=== PATIENT | male | born 1970 | race Caucasian/White ===

== ENCOUNTER → 2019-08-07 08:39 | Outpatient (CLI) | payer OTHER, SELFPAY ==
[2019-08-07 10:48] LABS: Cholesterol 146 mg/dL (200); High Density Lipoprotein 55 mg/dL; T4 Free Direct 0.83 ng/dL (0.76-1.46); Thyroid Stim Hormone (TSH) 2.45 uIU/mL (0.358-3.74); Triglycerides 115 mg/dL; Very Low Density Lipoprotein 23 mg/dL (5-40)
== END ==
PROVIDERS: PCP Family Medicine; Referring Provider Family Medicine; Visit Provider Family Medicine
DX: E78.1 Pure hyperglyceridemia (principal); E78.5 Hyperlipidemia, unspecified
CPT/HCPCS: 36415; 80061; 84439; 84443

== ENCOUNTER 2020-03-03 01:35 | Emergency (ER) | payer OTHER, SELFPAY ==
[2020-03-03 01:37] VITALS: BP 183/101; PULSE 97; RESP 18; TEMP 36.5; O2SAT 96; BMI 27.0
[2020-03-03 01:41] VITALS: BP 183/101; PULSE 97; RESP 18; TEMP 36.5; O2SAT 96
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
== END 2020-03-03 03:18 | disposition home or self-care (01) ==
PROVIDERS: Emergency Provider Emergency Medicine
DX: S60.511A Abrasion of right hand, initial encounter (principal); S60.512A Abrasion of left hand, initial encounter; S80.212A Abrasion, left knee, initial encounter; S80.211A Abrasion, right knee, initial encounter; V09.9XXA Pedestrian injured in unspecified transport accident, initial encounter; Y93.9 Activity, unspecified; Y92.9 Unspecified place or not applicable; K21.9 Gastro-esophageal reflux disease without esophagitis
CPT/HCPCS: 73130; 73564; 99282

== ENCOUNTER 2020-06-18 13:23 | Emergency (ER) | payer OTHER, SELFPAY ==
[2020-06-18 13:24] VITALS: BP 133/77; PULSE 108; RESP 18; TEMP 36.4; O2SAT 97; BMI 25.7
--- NOTE | 2020-06-18 13:44 | MRI_ITS ---
STUDY: MRI LUMBAR SPINE WITHOUT CONTRAST REASON FOR EXAM: Male, 49 years old. Severe back pain with L4 radiculopathy -- TECHNIQUE: Standardized fat and water weighted pulse sequences were obtained in the sagittal and axial planes. COMPARISON: X-ray 06/17/2020 FINDINGS: T12-L1: Normal endplates. Normal disc height, hydration and morphology. Normal bilateral facet joints. Normal central canal and bilateral lateral recesses. Normal bilateral intervertebral neural foramina. There is straightening of the normal lumbar lordosis. There is no substantial scoliosis. Normal conus medullaris that terminates at the T12/L1. L1-2: Normal endplates. Normal disc height, hydration and morphology. Normal bilateral facet joints. Normal central canal and bilateral lateral recesses. Normal bilateral intervertebral neural foramina. L2-3: Normal endplates. Normal disc height, hydration and morphology. Normal bilateral facet joints. Normal central canal and bilateral lateral recesses. Normal bilateral intervertebral neural foramina. L3-4: Mild bilateral facet hypertrophy and ligament flavum hypertrophy. Mild bilobed disc protrusion produces mild spinal stenosis and mild bilateral neural foraminal stenosis. L4-5: Mild bilateral facet hypertrophy and ligament flavum hypertrophy. Mild broad disc protrusion with an inferiorly extending right preforaminal extrusion produces mild spinal stenosis, severe right lateral recess stenosis with effacement of the right S1 nerve root, mild left lateral recess stenosis, and mild bilateral neural foraminal stenosis. L5-S1: Mild broad disc protrusion produces mild spinal stenosis and mild bilateral neural foraminal stenosis. Normal visualized sacral ala. Normal visualized paraspinous soft tissue structures. MRI/Spine Lumbar (Routine) IMPRESSION: Multilevel degenerative changes, as described above. Electronically Signed: Manny Navarrete MD at 17:27 EDT Tel , Service support ,
--- NOTE | 2020-06-18 13:46 | ED.VIS.BACK ---
History of Present Illness Chief Complaint: Back Detail of Chief Complaint: Exacerbation of chronic back pain. Informant: Patient, Significant Other Onset: Weeks Context: Sudden Onset Chronic pain exacerbated by: Nothing per patient and spouse Injury: - - Denies Timing: Continuous, Waxes and wanes Quality: Dull, Aching Location: Lumbar, Buttock, Right Leg Current Severity: Severe Maximum Severity: Severe Worsened by: improves with: Movement, Ambulation, Bending, Lifting Relieved by: Nothing Associated Symptoms: Numbness, Tingling, Radiation to Right Leg - L4 dermatome Narrative: Patient is a 49-year-old male who presents with atraumatic low back pain. He states he twinge it more than once. He is unable to get up to walk. He denies bowel bladder dysfunction. No saddle paresthesia or anesthesia. He denies foot drop. His knee has buckled because of pain but not weakness. There is no history of fever or chills. There is no history of trauma. He does have history of degenerative disc disease. He had an x-ray as an outpatient yesterday. He is presently on prednisone and muscle relaxant with no improvement. Prior similar symptoms: Yes, With Prior Back Pain Recent Illness/Hospitalization: No - Past Medical History (1) Degenerative disc disease, lumbar Status: Acute (2) GERD (gastroesophageal reflux disease) Status: Chronic Past Medical History - Allergies and Home Meds Allergies/Adverse Reactions: Allergies No Known Allergies Allergy (Verified 06/18/20 13:29) Primary Care Physician: Berhane Hull MD [Primary Care Provider] - Prior records reviewed: Yes Surgical History: noncontributory Lives: Spouse/ Significant Other Smoking Status: Never smoker Alcohol: Rare Drugs: None Review of Systems General: Denies: Chills, Fever, Malaise, Subjective Eyes: Denies: Visual changes - bilaterally, Blurred Vision - bilaterally ENT: Denies: Rhinorrhea, Sore throat Cardiovascular: Denies: Chest pain, Palpitations Respiratory: Denies: Dyspnea, Cough, Dyspnea on exertion Gastrointestinal: Denies: Abdominal pain, Nausea, Vomiting, Diarrhea Genitourinary: Denies: Dysuria, Hematuria, Frequency Musculoskeletal: Reports: Back pain, Extremity Pain. Denies: Myalgias, Arthralgias, Neck pain, Swelling Skin: Denies: Rash Neurological: Denies: Headache, Weakness, Parasthesia, Numbness Psych: Denies: Depression Physical Exam Vital Signs/Narrative: Vital Signs Temp Pulse Resp BP Pulse Ox 06/18/20 13:24 97.5 F L 108 H 18 133/77 H 97 Inital Vital Signs reviewed: Yes General: Well nourished, Well developed, - Head: Normocephalic, Atraumatic Eyes: Perrl, EOMI Neck: Supple, Nontender Cardiovascular: Regular rate, Regular rhythm Respiratory: No distress Abdomen: Soft, Nontender, Nondistended, Normal bowel sounds, No masses Rectal: Deferred, - - Normal perianal sensation. Back: Normal Inspection, Spinal tenderness, Paraspinal Tenderness, Negative SLR - Right, Negative SLR - Left, - - Positive femoral stretch test on the right. Pain in the distribution of L4 dermatome.. Negative for: Nontender, Surgical Scar, Well-Healed, CVA tenderness Extremeties: Nontender, No edema Skin: Normal color, No rash, No Trauma. Negative for: Cyanosis, Diaphoresis, Pallor, Rash Neuro: Alert, Oriented, Normal Strength, Normal Sensation, Normal DTR - Hello reflexes 2+ and symmetric. Ankle reflexes 2+ and symmetric., - - EHL is intact bilaterally.. Negative for: Normal Gait Psychological: - - Perturbed Diagnostic/Tx/Re-eval - Medical Decision Making With a positive femoral stretch test and pain distribution of L4 dermatome obtain MRI to evaluate for herniated disc. Initially patient declined pain medicine. He did not want to feel loopy. He agreed to IV Toradol. Patient was turned over to the afternoon physician, Dr. Rodríguez. Disposition pending results of MRI. Patient is presently on prednisone. ED Disposition - Plan for ED Patient: Referrals: Berhane Hull MD [Primary Care Provider] -
[2020-06-18] MEDS: Ketorolac 15 MG/ML Vial IV (14:01)
--- NOTE | 2020-06-18 14:40 | ED.RN ---
pt advised that it would be several hours until able to get mri done. Pt stated that was ok.
[2020-06-18] MEDS: oxyCODONE 5 MG Tablet PO (15:35)
[2020-06-18 18:08] VITALS: BP 139/88; PULSE 79; RESP 16; O2SAT 97
== END 2020-06-18 18:13 | disposition home or self-care (01) ==
PROVIDERS: Emergency Provider Emergency Medicine
DX: M51.16 Intervertebral disc disorders with radiculopathy, lumbar region (principal); M51.27 Other intervertebral disc displacement, lumbosacral region
CPT/HCPCS: 72148; 96374; 99284; A4216

== ENCOUNTER 2020-09-12 09:00 | Outpatient (RCR) | payer OTHER, SELFPAY ==
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
--- NOTE | 2020-08-29 13:26 | HP.PTREVAL ---
Sonia Kim, DEMETRIO-C, It has been my pleasure to treat MART HDZ over the last 9 visits for Lumbar Surgery 07/01/2020. Please see the progress note below for an update on the physical therapy plan of care! Subjective: Patient reports that he feels that he is getting stronger. Feels like his strength and endurance are still a little limited. Ran last session which was hard- not pain just hard. No pain radiating down the leg and does still have some Numbness. Currently doing light duty and will return him as feels. Concerned about running after someone or being in an altercation. Objective/Function: Posture: good throughout. Gait: no deviation noted HR/TR: able with UE A. SLS: Right: 15 sec Left: 30 sec Sensation: WFL to gross touch in LE. Reflex: Patellar bilateral WFL. ROM: Lumbar: WFL in all planes. Hip/Knee/Ankle: WFL. Strength: Core: fair, Hip: 4+/5 throughout, Knee: 5/5, Ankle: Left:5/5 Right: 4/5. Flex: HS: severe, Gastroc: severe. Special Test: Slump: positive, SLR: positive, Dural Signs: positive. Observation: Plan Plan: 08/29/2020: Continue 2x a week for 3 weeks for work simulation and progression with running. Re-assess with Alicia Sotelo DPT immediately following today's session. Goals Goal 1:: Patient will be I with HEP and progression Goal Time Frame: 4-6 Weeks Goal Progress: Progressing Goal 2:: Patient will maintain proper posture t/o tx session Goal Time Frame: 4-6 Weeks Goal Progress: Progressing Goal 3:: Patient will report no pain for 1 week Goal Time Frame: 4-6 Weeks Goal Progress: Progressing Goal 4:: Patient will SLS for 30 sec without LOB on the right Goal Progress: Progressing Anticipated Interventions Patient/Client Instruction: Educate patient on: Benefits of Fitness Program Therapeutic Exercise to Include: Strength training, Endurance training, Balance training, Coordination, Agility training, Body mechanics, Postural training, Flexibilty training, Gait and locomotor training, Neuromotor development, Passive ROM, Active ROM, Dynamic Lumbar Stabilization, Scapular Strength/Stabilization For the Purpose of:: To improve muscle performance and motor function TENS: Yes Cryotherapy (ice pack, ice massage): Yes Thermo therapy (hot pack): Yes Ultrasound (thermal/non thermal): No Please do not hesitate to contact me at [phone] by phone or if you have questions or concerns regarding this new plan of care! Sincerely, SHAI SchroederT
--- NOTE | 2020-09-12 10:09 | HP.PTDCSUM ---
It has been my pleasure to treat MART HDZ referred by RAINE Rhodes, with the diagnosis of Lumbar Surgery 07/01/2020 for a total of 12 visit(s). Discharge Date: Please see the following information for a summary of their discharge status. Subjective: Fatigue from yesterday but no pain- feels that he is 90-95%- endurance is still a little off but improving. Back Pain Intensity (Out of 10): 0 % Improvement: 95 Objective/Function: Patient was able to complete without incidence. He was fatigued throughout with addition of core exercise and weighted vest. Encouraged him to continue to progress as tolerated indep at the gym and to call with questions. Goal 1:: Patient will be I with HEP and progression Goal Progress: Progressing Goal 2:: Patient will maintain proper posture t/o tx session Goal Progress: Progressing Goal 3:: Patient will report no pain for 1 week Goal Progress: Progressing Goal 4:: Patient will SLS for 30 sec without LOB on the right Goal Progress: Progressing Plan: 09/12/2020: Discharge and return to work as recommended by . 08/29/2020: Continue 2x a week for 3 weeks for work simulation and progression with running. If there are questions or concerns regarding this patient's physical therapy, please feel free to call me at [phone]. Thank you for the referral of this patient. Sincerely, Alicia Sotelo DPT
== END 2020-09-12 13:20 | disposition home or self-care (01) ==
LOC: PT 09:00
PROVIDERS: PCP Family Medicine; Referring Provider Nurse Practitioner Acute Care; Visit Provider Nurse Practitioner Acute Care
DX: M51.16 Intervertebral disc disorders with radiculopathy, lumbar region (principal)
CPT/HCPCS: 97110; 97162; 97164

== ENCOUNTER 2020-11-30 10:51 | Emergency (ER) | payer OTHER, SELFPAY ==
[2020-11-30 10:52] VITALS: BP 159/100; PULSE 62; RESP 16; TEMP 36; O2SAT 97; BMI 25.7
--- NOTE | 2020-11-30 10:53 | NURSING ---
NO OLD EKGS
[2020-11-30 11:04] VITALS: BP 163/118; PULSE 67; RESP 14; O2SAT 96
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
--- NOTE | 2020-11-30 11:09 | RAD_ITS ---
STUDY: X-RAY CHEST REASON FOR EXAM: Male, 50 years old. Chest pain TECHNIQUE: Single AP portable view of the chest. COMPARISON: 11/01/2016. FINDINGS: Patchy density right midlung zone could represent early infiltrate. The lungs are otherwise clear. There is no demonstrated pleural abnormality. Normal size heart. Normal mediastinum and tayla. Normal visualized pulmonary arteries. Normal visualized aortic arch and descending thoracic aorta. Normal visualized thoracic spine. Normal visualized ribs, clavicles, and shoulders. There is no demonstrated abnormality of the visualized soft tissue structures of the upper abdomen. RAD/Chest 1 View (Portable) IMPRESSION: Questionable early infiltrate in right midlung zone. Electronically Signed: Andreas Brand MD at 11:38 EDT Tel , Service support ,
[2020-11-30 11:18] LABS: Absolute Lymphocyte Count 2.58 X10^3/uL (0.83-4.51); Absolute Neutrophil Count 1.9 X10^3/uL (2.0-7.7); Basophil# 0.03 X10^3/uL; Basophil% 0.6 % (0-1); Eosinophil# 0.08 X10^3/uL; Eosinophils% 1.6 % (0-5); Hematocrit 42.3 % (40-54); Hemoglobin 14.2 g/dL (13.0-16.5); Lymphocyte # 2.58 X10^3/ul (0.83-4.51); Lymphocyte % 50.3 % (19-41); Mean Corp Hgb Conc 33.6 g/dL (32-36); Mean Corpuscular Hgb 30.2 pg (27.0-32.0); Mean Platelet Vol. 9.8 fl (6.2-12.0); Monocyte# 0.48 X10^3/uL; Monocyte% 9.4 % (0-10); NRBC Flagged by Analyzer 0 % (0-5); Neutrophil # 1.92 X10^3/uL (2.7-7.7); Neutrophil % 37.3 % (47-70); Platelet Count 239 K/mm3 (150-450); RBC Distribution Width CV 12.5 % (11.6-14.6); White Blood Count 5.1 K/mm3 (4.4-11.0)
[2020-11-30 11:32] LABS: Anion Gap 6 (5-15); BUN 10 mg/dL (7-18); Calcium,Total 9.4 mg/dL (8.5-10.1); Chloride 104 mmol/L (98-107); EST Glomerular Filtration Rate 85 mL/min (>60); Est Glom Filt Rate - Afr Amer 103 mL/min (>60); Estimated Creatinine Clearance 96.22 ml/min; Glucose 96 mg/dL (74-106); Potassium 3.9 mmol/L (3.5-5.1); Sodium Level 139 mmol/L (136-145); Troponin-I HS 7 pg/mL (3.0-78.0)
[2020-11-30 11:36] VITALS: O2SAT 94
--- NOTE | 2020-11-30 11:56 | CT_ITS ---
STUDY: CTA CHEST REASON FOR EXAM: Male, 50 years old. Palpitations, concerning for pulmonary embolism. RADIATION DOSAGE (If Supplied By Facility): CTDIvol = ( 13.80 ) mGy, DLP = ( 447.98 ) mGycm TECHNIQUE: The examination was performed with the intravenous administration of IV 100mL Isovue-370. Post-processing of the angiographic images was performed, with multiplanar reformation and 3D reconstruction. Individualized dose optimization techniques were used for this CT. COMPARISON: None. FINDINGS: Normal enhancement of the main pulmonary artery and right and left pulmonary arteries. Normal enhancement of the bilateral peripheral pulmonary arteries. There is no demonstrated pulmonary embolism. Normal thoracic aorta and visualized great vessels. There is no demonstrated aortic dissection. Normal heart and pericardium. Normal mediastinum. Normal hilar regions. Normal visualized trachea and bronchi. Hypoventilatory and compressive atelectatic changes in the lower lobes. No focal infiltrate otherwise is seen. There are no pleural effusions. Normal chest wall structures. No demonstrated acute osseous changes. Normal visualized upper abdomen. CT/CTA Chest W/WO Contrast IMPRESSION: 1. No evidence of pulmonary embolism or aortic dissection. 2. Mild compressive atelectatic changes in lung bases worse on the right side. Electronically Signed: Andreas Brand MD at 13:18 EDT Tel , Service support ,
[2020-11-30] MEDS: 0.9% Normal Saline 1,000 ML 999 ML IV (12:13)
[2020-11-30 13:18] VITALS: BP 175/109; PULSE 59; RESP 18; O2SAT 98
[2020-11-30 14:08] LABS: Troponin-I HS 7 pg/mL (3.0-78.0)
[2020-11-30 15:13] VITALS: BP 168/100; PULSE 73; RESP 21; O2SAT 97
--- NOTE | 2020-11-30 15:54 | ED.VIS.CHEST ---
HPI History of Present Illness Chief Complaint: Palpitations Narrative Narrative: Patient presents with heart palpitations that he has had intermittently for the last few week. At times he feels short of breath with it. It feels like his heart is skipping a beat. He complains of a rapid heart rate. No chest pain. He denies any nausea or vomiting. No other symptoms. No exacerbating or alleviating factors. This happens on occasion and only lasts a short time, even less than a minute or so. He states he feels fluttering in his chest. He denies any significant past medical history. Sometimes he feels short of breath on exertion. He denies any DVT or PE risk factors. [facility] Medical History (Updated 11/30/20 @ 15:54 by Eugene Hill MD) Hyperlipidemia Home Medications albuterol sulfate [Ventolin HFA] 1 - 2 puff INHALATION Q4H PRN PRN #8.5 g 11/30/20 [Rx Last Taken Unknown] Allergy/AdvReac Type Severity Reaction Status Date / Time No Known Allergies Allergy Verified 11/30/20 10:54 Surgical History (Updated 11/30/20 @ 11:05 by Sahara Stallworth) History of discectomy Social History Smoking Status: Never smoker ROS ROS ED ROS Narrative Constitutional: No fever, no chills. HEENT: No sore throat. No neck pain. No loss of vision. No rhinorrhea. Cardiovascular: No chest pain. Positive palpitations. No pedal edema. Respiratory: No cough, occasional shortness of breath. Abdominal: No abdominal pain. No nausea. No vomiting. Genitourinary: No dysuria. No hematuria. Musculoskeletal: No myalgias. No arthralgias. Neurologic: No headaches. No dizziness. No lightheadedness. Skin: No rash. No change in color. Psychiatric: No depression. No anxiety. EXAM Physical Exam Narrative Exam Narrative: Afebrile. Vital signs noted. HEENT: Normocephalic. Atraumatic. PERRL, EOMI. Neck soft and supple. No point tenderness or step off. Cardiovascular: Regular rate and rhythm. No murmurs, rubs, or gallops appreciated. Respiratory: No tachypnea. Lungs clear to auscultation bilaterally. Gastrointestinal: Abdomen soft, nontender, with normoactive bowel sounds. No rebound or guarding. Neurological: Awake. Alert. Nonfocal, nonlateralizing. Skin: No rash. Normal color. No pallor. Musculoskeletal: No pedal edema. Full range of motion extremities. Const Vital Signs: 11/30/20 10:52 11/30/20 11:04 11/30/20 11:36 Temperature 96.8 F L Temperature Source Temporal Pulse Rate 62 67 Respiratory Rate 16 14 Respiratory Effort Normal Non-Labored Blood Pressure 159/100 H 163/118 H Blood Pressure Mean 119 133 Pulse Ox 97 96 94 Oxygen Delivery Method Room Air Room Air Room Air 11/30/20 13:18 11/30/20 15:13 Temperature Temperature Source Pulse Rate 59 L 73 Respiratory Rate 18 21 H Respiratory Effort Blood Pressure 175/109 H 168/100 H Blood Pressure Mean 131 122 Pulse Ox 98 97 Oxygen Delivery Method Room Air Room Air MDM MDM MDM Narrative Medical decision making narrative: Comprehensive work-up was pursued. His EKG demonstrates normal sinus rhythm at 62 bpm without ectopy or acute ST changes. His blood pressure is elevated and ranges to as high as 170 systolic, currently 159/100. He is asymptomatic with this and does not have headache or chest pain. He states he used to take hypercholesterolemia medications, but does not any longer because he changed his diet. His WBC count is normal, stable hemoglobin of 14.2. BMP is grossly unremarkable. Initial high-sensitivity troponin is negative at 7, delta troponin is negative. At this point in time, feel he can be discharged safely home with follow-up. His chest x-ray shows questionable early infiltrate in the mid lung zone on the right. Because of this, I did obtain a CTA which was negative and did show atelectasis. He is not a smoker. I will write him a prescription for an albuterol inhaler. I attempted to contact his primary care provider/the physician compensation business partner for him, but was unsuccessful. I feel given his asymptomatic hypertension, that he can be discharged safely home with follow-up. He should keep a log of his blood pressures. Return instructions to the emergency department were reviewed. Disposition is discharged home in stable condition. Lab Data Labs: Laboratory Results - last 24 hr 11/30/20 11/30/20 11/30/20 11:10 11:10 13:10 WBC 5.1 RBC 4.70 Hgb 14.2 Hct 42.3 MCV 90.0 MCH 30.2 MCHC 33.6 RDW Std Deviation 41.0 RDW Coeff of Daisy 12.5 Plt Count 239 MPV 9.8 Immature Gran % (Auto) 0.800 Neut % (Auto) 37.3 L Lymph % (Auto) 50.3 H [place] % (Auto) 9.4 Eos % (Auto) 1.6 Baso % (Auto) 0.6 Absolute Neuts (auto) 1.9 L Absolute Lymphs (auto) 2.58 Nucleated RBC % 0 Sodium 139 Potassium 3.9 Chloride 104 Carbon Dioxide 29.0 Anion Gap 6 BUN 10 Creatinine 1.00 Estim Creat Clear Calc 96.22 Est GFR (MDRD) Af Amer 103 Est GFR (MDRD) Non-Af 85 BUN/Creatinine Ratio 10.0 Glucose 96 Calcium 9.4 Troponin I High Sens 7 7 Radiography Diagnostic Testing: Radiology Impression Chest X-Ray 11/30/20 11:09 IMPRESSION: Questionable early infiltrate in right midlung zone. Electronically Signed: Andreas Brand MD at 11:38 EDT Tel , Service support , Chest CTA 11/30/20 11:56 IMPRESSION: 1. No evidence of pulmonary embolism or aortic dissection. 2. Mild compressive atelectatic changes in lung bases worse on the right side. Electronically Signed: Andreas Brand MD at 13:18 EDT Tel , Service support , Discharge Plan Triage Chief Complaint: Palpitations ED Provider: Eugene Hill Dx/Rx/DC Orders Clinical Impression: Atelectasis, Palpitations, Asymptomatic hypertension Instructions: ED Atelectasis, ED High Blood Pressure Hypertension, ED Palpitations Prescriptions: New albuterol sulfate [Ventolin HFA] 90 mcg/actuation HFA aerosol inhaler 1 - 2 puff inhalation Q4H PRN PRN (Reason: shortness of breath or wheezing) Qty: 8.5 RF: 0 Primary Care Provider: Christiano Holland Referrals: Christiano Holland DO [Primary Care Provider] - 12/02/20 Disposition Disposition: Home, Self Care
[2020-11-30 16:33] VITALS: BP 159/101
== END 2020-11-30 16:33 | disposition home or self-care (01) ==
PROVIDERS: Emergency Provider Emergency Medicine; PCP Family Medicine
DX: R00.2 Palpitations (principal); J98.11 Atelectasis; I10 Essential (primary) hypertension
CPT/HCPCS: 71045; 71275; 80048; 84484; 85025; 93005; 96360; 96361; 99285; J7030; Q9967; A4216

== ENCOUNTER → 2021-01-31 09:44 | Outpatient (CLI) | payer OTHER, SELFPAY ==
[2021-01-31 12:21] LABS: Cholesterol 261 mg/dL (200); Glucose 93 mg/dL (74-106); High Density Lipoprotein 44 mg/dL; Triglycerides 388 mg/dL; Very Low Density Lipoprotein 78 mg/dL (5-40)
[2021-02-03 16:08] LABS: Endomysial Antibody IgA Negative (Negative)
[2021-02-03 19:39] LABS: Immunoglobulin A 214 mg/dL (90-386); t-Transglutaminase IgA <2 U/mL (0-3)
== END ==
PROVIDERS: PCP Family Medicine; Referring Provider Family Medicine; Visit Provider Family Medicine
DX: Z00.00 Encounter for general adult medical examination without abnormal findings (principal); Z83.79 Family history of other diseases of the digestive system; R19.7 Diarrhea, unspecified
CPT/HCPCS: 80061; 82784; 82947; 83516; 86255

== ENCOUNTER → 2021-02-11 12:51 | Outpatient (CLI) | payer OTHER, SELFPAY ==
--- NOTE | 2021-02-11 12:54 | RAD_ITS ---
STUDY: X-RAY - PELVIS AND LEFT HIP REASON FOR EXAM: Male, 50 years old. Left hip pain x1 month, no known injury TECHNIQUE: AP and lateral views of the pelvis and hip. COMPARISON: None. FINDINGS: There is a non-specific bowel gas pattern. Normal visualized soft tissue structures. Normal bilateral iliac wings, sacroiliac joints and visualized sacrum. Normal bilateral superior and inferior pubic rami. Normal pubic symphysis. Normal bilateral ischial tuberosities. Normal visualized femoral head. Normal acetabulum. There is mild articular joint space narrowing of the hip. RAD/HIP, UNI W/ Pelvis 2-3 Views IMPRESSION: Mild left femoral acetabular joint space narrowing. Electronically Signed: Joey Jarrell MD at 6:33 EST Tel , Service support ,
== END ==
PROVIDERS: PCP Family Medicine; Referring Provider Family Medicine; Visit Provider Family Medicine
DX: M25.552 Pain in left hip (principal)
CPT/HCPCS: 73502

== ENCOUNTER 2021-04-10 09:13 | Outpatient (CLI) | payer OTHER, SELFPAY | END 2021-04-10 23:59 | disposition short-term general hospital (02) | LOC: LABSPEC 04-11 09:13 | PROVIDERS: PCP Family Medicine; Visit Provider Family Medicine | DX: R05.9 Cough, unspecified (principal) | CPT/HCPCS: 87635; U0003; U0005 ==

== ENCOUNTER 2021-07-21 08:00 | Outpatient (RCR) | payer OTHER, SELFPAY ==
--- NOTE | 2021-04-29 09:56 | HP.PTEVAL_ITS ---
Patient's Visit Information MART HDZ is a 50 year old M referred to Physical Therapy by ZAID CRAWFORD with a diagnosis of Right RTC Repair with dermal allograft augmentation, SAD and DCE 04/22/21. Date of Evaluation: 04/29/21 Physical Therapist: Alicia Sotelo DPT - Visit Plan Frequency: 2x /Week Duration: 4 Weeks Plan: Follow Protocol in Folder - Subjective Right RTC Repair 04/22/2020 Dr. Vargas- sent home after surgery- is wearing the sling all the time. 10 years ago same shoulder he had a RTC repair. Wear and tear and working out he felt a pull about a year ago. Attempted rehab but it never got better. Did have injections but ended up having surgery. Right hand dominate. Currently sleeping in a chair with some trips to his bed and being propped up. Worst: 5/10 Agg: trying to move it around a little bit. Ease: not moving it around, has not been using ice. Best: 0/10. Pain is located in the shoulder more anterior. No radiating pain- no N/T in the hands. No increase in TOMLINSON, blurred vision, dizziness or light headed. 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 Has not been back to surgeon yet- sees them tomorrow. Work: [employer]. PMHx: back surgery, RTR repair, HTN Meds: norvac - Objective Posture: FH, RS- can correct with verbal cues but does not maintain- sling with pillow on the right UE. Gait: no LE deviation noted- but does have decreased arm swing and trunk rotation due to the sling. Palpation: tender along upper trap and into the bicipital groove. Observation: no s/s of infection- significant bruising down the biceps to the elbow. 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 PROM: Shoulder: Flexion: 90 degrees, Abd: 90 degrees, IR: to belly, ER: 15 degrees. Sensation: WNL. Strength: not tested due to protocol - Balance/Special Test Scores Quick DASH Score: 65.9075 - Goals Goal 1:: Patient will be I with HEP and progression Goal 2:: Patient will demo full AROM of the right shoulder in all planes (per protocol) Goal Time Frame: 4-6 Weeks Goal 3:: Patient will maintain proper posture t/o tx session to demo increased scap s/s Goal Time Frame: 4-6 Weeks Goal 4:: Patient will report no pain for 1 week with return to all normal ADL's. Goal Time Frame: 4-6 Weeks - Rehabilitation Potential Physical Therapy Diagnosis: Patient presents with hypomobility s/p right RTC Repair with dermal allograft augmentation, SAD and DCE 04/22/21. He has decreased ROM, UE and scapular strength/stabilization and muscular endurance leading to poor posture and decreased ability to perform ADL's. Rehabilitation Potential: Good - Anticipated Interventions Patient/Client Instruction: Educate patient on: Benefits of Fitness Program Therapeutic Exercise to Include: Strength training, Endurance training, Balance training, Coordination, Agility training, Body mechanics, Postural training, Flexibilty training, Gait and locomotor training, Neuromotor development, Passive ROM, Active ROM, Dynamic Lumbar Stabilization, Scapular Strength/Stabilization For the Purpose of:: To improve muscle performance and motor function Manual Therapy Techniques to Include: Passive ROM, Soft tissue mobilization TENS: Yes Cryotherapy (ice pack, ice massage): Yes Thermo therapy (hot pack): Yes Ultrasound (thermal/non thermal): No Thank you for the opportunity to evaluate your patient. For Medicare and Medicare HMO plans, please review the plan of care and approve it. It will need to be FAXED BACK to us at [phone] for Medicare purposes. For Medicare only, by signing this I certify the plan of care. Please let me know if there are questions or concerns regarding this plan of care. Physician Signature: Date:
--- NOTE | 2021-07-21 08:22 | HP.PTDCSUM ---
It has been my pleasure to treat MART HDZ referred by ZAID CRAWFORD, with the diagnosis of Right RTC Repair with dermal allograft augmentation, SAD and DCE 04/22/21 for a total of 21 visit(s). Discharge Date: Please see the following information for a summary of their discharge status. Subjective: Patient reports that the shoulder is doing good- does not have full strength but its getting better. Back to full duty on Wednesday. No pain just has scar tissue discomfort when he does certain movements. Push ups still bother him some- still doing elevated push ups. 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 Does not go back to the MD at all- has been cleared to go back starting the . % Improvement: 95 Objective/Function: Posture: good throughout session in unsupported sitting and standing. Gait: good arm swing and trunk rotation- no deviation noted. Palpation: not tender to touch. ROM: WFL in all planes of the cervical spine and right shoulder. Strength: performed with dynamometer- Flexion: 14/13. Extension:55/53. Abduction: 24/26. Adduction: 40/37. IR:. ER: Goal 1:: Patient will be I with HEP and progression Goal Progress: Goal Met Goal 2:: Patient will demo full AROM of the right shoulder in all planes (per protocol) Goal Progress: Goal Met Goal 3:: Patient will maintain proper posture t/o tx session to demo increased scap s/s Goal Progress: Goal Met Goal 4:: Patient will report no pain for 1 week with return to all normal ADL's. Goal Progress: Goal Met Plan: Discharge to I HEP and return to work per MD on 07/28/21 If there are questions or concerns regarding this patient's physical therapy, please feel free to call me at [phone]. Thank you for the referral of this patient. Sincerely, Alicia Sotelo, DPT Balance/Gait/Functional tests - Balance/Special Test Scores Quick DASH Score: 4.5450
== END 2021-07-21 19:00 | disposition home or self-care (01) ==
LOC: PT 08:00
PROVIDERS: PCP Family Medicine
DX: M75.101 Unspecified rotator cuff tear or rupture of right shoulder, not specified as traumatic (principal)
CPT/HCPCS: 97014; 97110; 97140; 97162; 97164; G0283

== ENCOUNTER 2021-11-22 00:26 | Emergency (ER) | payer OTHER, SELFPAY ==
[2021-11-22 00:27] VITALS: TEMP 36.7; BMI 25.2
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
== END 2021-11-22 01:04 | disposition home or self-care (01) ==
LOC: ED 01:03
PROVIDERS: Emergency Provider Emergency Medicine; PCP Family Medicine; Visit Provider Emergency Medicine
DX: S05.12XA Contusion of eyeball and orbital tissues, left eye, initial encounter (principal); Y04.8XXA Assault by other bodily force, initial encounter; E78.5 Hyperlipidemia, unspecified; Z97.3 Presence of spectacles and contact lenses; Z79.899 Other long term (current) drug therapy; Z85.828 Personal history of other malignant neoplasm of skin
CPT/HCPCS: 99283

== ENCOUNTER → 2022-07-30 | Outpatient (CLI) | payer OTHER, SELFPAY ==
[2022-07-30 15:18] LABS: Absolute Lymphocyte Count 2.28 X10^3/uL (0.83-4.51); Absolute Neutrophil Count 2.6 X10^3/uL (2.0-7.7); Basophil# 0.04 X10^3/uL; Basophil% 0.7 % (0-1); Eosinophil# 0.08 X10^3/uL; Eosinophils% 1.5 % (0-5); Hematocrit 43.3 % (40-54); Hemoglobin 14.6 g/dL (13.0-16.5); Lymphocyte # 2.28 X10^3/ul (0.83-4.51); Lymphocyte % 42.7 % (19-41); Mean Corp Hgb Conc 33.7 g/dL (32-36); Mean Corpuscular Volume 89.1 fL (80-94); Mean Platelet Vol. 11.1 fl (6.2-12.0); Monocyte# 0.35 X10^3/uL; Monocyte% 6.6 % (0-10); NRBC Flagged by Analyzer 0 % (0-5); Neutrophil # 2.56 X10^3/uL (2.7-7.7); Neutrophil % 47.9 % (47-70); Platelet Count 268 K/mm3 (150-450); RBC Distribution Width CV 12.1 % (11.6-14.6); RBC Distribution Width SD 39.4 fl (35.1-43.9); Red Blood Count 4.86 M/mm3 (4.6-6.2); White Blood Count 5.3 K/mm3 (4.4-11.0)
[2022-07-30 15:42] LABS: ALB/GLOB Ratio 1.2 RATIO (0.9-2.4); AST(SGOT) 29 U/L (15-37); Alanine Aminotransfer ALT/SGPT 41 U/L (16-61); Albumin, Serum 4.3 g/dL (3.2-5.0); Alkaline Phosphatase 63 U/L (45-117); Anion Gap 6 (5-15); BUN 17 mg/dL (7-18); BUN/Creat Ratio 16.3 RATIO (10-20); Calcium,Total 9.9 mg/dL (8.5-10.1); Chloride 106 mmol/L (98-107); Cholesterol 253 mg/dL (200); Creatinine, Serum 1.04 mg/dL (0.70-1.30); EST Glomerular Filtration Rate 80 mL/min (>60); Est Glom Filt Rate - Afr Amer 97 mL/min (>60); Globulin 3.6 g/dL (2.2-4.2); Glucose 94 mg/dL (74-106); High Density Lipoprotein 46 mg/dL; Potassium 3.6 mmol/L (3.5-5.1); Protein, Total 7.9 g/dL (6.4-8.2); Sodium Level 139 mmol/L (136-145); Triglycerides 463 mg/dL
== END | disposition home or self-care (01) ==
LOC: BFHLAB 11:31
PROVIDERS: PCP Family Medicine; Referring Provider Family Medicine; Visit Provider Family Medicine
DX: Z00.00 Encounter for general adult medical examination without abnormal findings (principal)
CPT/HCPCS: 36415; 80053; 80061; 85025

== ENCOUNTER 2022-09-30 20:35 | Emergency (ER) | payer OTHER, SELFPAY ==
[2022-09-30 20:37] VITALS: BP 154/100; PULSE 86; RESP 18; TEMP 36.8; O2SAT 98; BMI 28.5
[2022-09-30] MEDS: Lidocaine 1% (20 ml mdv) 20 ML Vial INFILT (21:12)
[2022-09-30] MEDS: Amox/Clavulanate 875 MG Tablet PO (21:12)
[2022-09-30] MEDS: Diphth,Pertuss(Acell),Tet Vac 0.5 ML Vial IM (21:12)
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
[2022-09-30 22:35] LABS: HIV - WCH Non-Reactive (Nonreactive); Hepatitis B Surface Antibody Reactive; Hepatitis B Surface Antigen Non-Reactive (Nonreactive); Hepatitis C Antibody Non-Reactive (Nonreactive)
== END 2022-09-30 22:39 | disposition home or self-care (01) ==
PROVIDERS: Emergency Provider Emergency Medicine; PCP Family Medicine; Visit Provider Emergency Medicine
DX: S60.512A Abrasion of left hand, initial encounter (principal); Y04.8XXA Assault by other bodily force, initial encounter; Y04.1XXA Assault by human bite, initial encounter; S61.451A Open bite of right hand, initial encounter; S00.81XA Abrasion of other part of head, initial encounter; S60.419A Abrasion of unspecified finger, initial encounter; E78.5 Hyperlipidemia, unspecified; S51.852A Open bite of left forearm, initial encounter; S40.811A Abrasion of right upper arm, initial encounter; S40.021A Contusion of right upper arm, initial encounter; Z23 Encounter for immunization
CPT/HCPCS: 12001; 86703; 86706; 86803; 87340; 90715; 99283

== ENCOUNTER → 2023-03-17 | Outpatient (CLI) | payer OTHER, SELFPAY ==
--- NOTE | 2023-03-17 09:44 | STE_ITS ---
Reason For Study: CHEST PAIN, SOB Stress Results Protocol: Michi Protocol Maximum Predicted HR: 170 bpm Target HR: 145 bpm % Maximum Predicted HR: 92 % DurationHeart Rate Stage (mm:ss) (bpm) BP Comment BASELINE 72 132/88 STAGE 1 3:00 100 150/80 STAGE 2 3:00 108 180/74 STAGE 3 3:00 123 160/80 STAGE 4 3:00 142 210/82 STAGE 5 1:00 157 / NO CHEST PAIN RECOVERY 90 134/80 Stress Duration: 13:00 mm:ss Maximum Stress HR: 157 bpm Baseline Echocardiogram Findings The estimated ejection fraction is 65 %. Exercise EF is greater than 75%. Stress Echo Wall motion Data Resting WM Intermediate WM Stress WM Resting Wall Motion Wall Motion Stress No regional wall motion No regional wall motion abnormalities noted. abnormalities noted. EKG Data The baseline ECG displays normal sinus rhythm. About [address] depression in the inferior leads and about 1 to [address] depression in the lateral leads. Symptoms with Stress The patient experinced No chest pain . Time Measurements MV dec time: 0.15 sec Doppler Measurements & Calculations MV E max rani: 58.6 cm/sec TR max rani: 228.4 cm/sec MV A max rani: 71.8 cm/sec MV dec slope: 382.4 cm/sec2 TR max P.9 mmHg MV E/A: 0.82 ECHO/Stress Test Echo w/o Contrast Interpretation Summary The estimated ejection fraction is 65 %. Exercise stress echo is positive for exercise-induced EKG changes of ischemia. The test is negative for exercise-induced echocardiographic changes of ischemia or chest pain. Functional capacity is excellent for age Ordering Physician: Christiano Holland Referring Physician: SAM Performed By: Lizy Moyer, RDCS, RVT
== END | disposition home or self-care (01) ==
LOC: CVS 09:41
PROVIDERS: PCP Family Medicine; Visit Provider Family Medicine
DX: R06.09 Other forms of dyspnea (principal); R07.89 Other chest pain; R94.31 Abnormal electrocardiogram [ECG] [EKG]
CPT/HCPCS: 93017; 93350

== ENCOUNTER → 2023-05-28 | Outpatient (CLI) | payer OTHER, SELFPAY ==
--- NOTE | 2023-05-28 12:48 | ECHOD_ITS ---
Reason For Study: PALPITATIONS Procedure This was a 2D Doppler, Color Flow transthoracic echocardiogram. Exam performed in department. Left Ventricle Normal LV size. Mild concentric left ventricular hypertrophy. Left ventricular systolic function is normal. The estimated ejection fraction is 65 %. Normal diastololic function. Right Ventricle Normal RV size. Normal systolic function. Atria The left and right atria are normal. Mitral Valve The mitral valve is structurally normal. No prolapse or stenosis seen. Mild (1+) mitral valve insufficiency. Tricuspid Valve Normal tricuspid valve. Trivial tricuspid valve insufficiency. Right ventricular systolic pressure estimated to be 21 mmHg. Aortic Valve Trisinus/trileaflet aortic valve. Mild focal aortic valve calcification. Pulmonic Valve Normal pulmonic valve. Mild (1+) pulmonic valve insufficiency. Great Vessels Normal aortic root. Pericardium/Pleural No pericardial effusion. MMode/2D Measurements & Calculations LVIDd: 4.4 cm IVSd: 1.3 cm Ao root diam: 3.4 cm LVIDs: 2.9 cm LVPWd: 1.2 cm RVDd: 3.9 cm FS: 34.7 % LAV(MOD-bp): 37.6 ml LVAd ap4: 32.4 cm2 SV(MOD-sp4): 57.4 ml LAV(MOD-bp) Indexed: 18.0 ml/m2 LVLd ap4: 8.9 cm LAV(MOD-sp2): 35.6 ml EDV(MOD-sp4): 95.4 ml LAV(MOD-sp4): 41.0 ml EDV(sp4-el): 100.6 ml LVAs ap4: 17.6 cm2 LVLs ap4: 6.9 cm ESV(MOD-sp4): 38.1 ml ESV(sp4-el): 38.0 ml EF(MOD-sp4): 60.1 % EF(sp4-el): 62.2 % SV(sp4-el): 62.6 ml LA A4 area: 16.5 cm2 LA dimension(2D): 3.6 cm RA A4 area: 16.9 cm2 TAPSE: 2.0 cm Time Measurements MV dec time: 0.21 sec Doppler Measurements & Calculations MV E max raul: 63.6 cm/sec Lat Peak E' Raul: 14.1 cm/sec Med Peak E' Raul: 11.0 cm/sec MV A max raul: 69.6 cm/sec E/E' lat: 4.5 E/E' med: 5.8 MV E/A: 0.91 Ao V2 max: 115.0 cm/sec LV V1 max: 113.0 cm/sec PA V2 max: 103.6 cm/sec Ao max P.3 mmHg LV V1 max P.1 mmHg TR max raul: 212.2 cm/sec TR max P.0 mmHg ECHO/Echo Complete Interpretation Summary The estimated ejection fraction is 65 %. Mild concentric left ventricular hypertrophy. Mild (1+) mitral valve insufficiency. Ordering Physician: Suleiman Mar Referring Physician: RAMON VARGAS Performed By: Shirley Vazquez RDCS
--- NOTE | 2023-05-28 12:49 | CT_ITS ---
STUDY: CT CHEST WITH CONTRAST REASON FOR EXAM: Male, 52 years old[address] PALPITATIONS Limited CT overread only RADIATION DOSAGE (If Supplied By Facility): CTDIvol = ( 35.16 ) mGy, DLP = ( 1391.08 ) mGycm TECHNIQUE: Transaxial imaging was performed following intravenous administration of IV 60mL Isovue-370. Individualized dose optimization techniques were used for this CT. COMPARISON: Comparison is made with prior study dated November 30, 2020. FINDINGS: CHEST The lungs are normal. There is no demonstrated pleural abnormality. Normal heart and pericardium. Normal mediastinum. Normal hilar regions. Normal unenhanced pulmonary arteries. Normal aorta arch and descending thoracic aorta. Normal osseous structures. Fatty infiltration of the liver. CT/Limited Chest CT Cardiac Only IMPRESSION: Normal enhanced CT chest. Electronically Signed: Jose Manuel Gorman MD at 14:51 EST ,
== END | disposition home or self-care (01) ==
LOC: CVS 12:45
PROVIDERS: PCP Family Medicine; Referring Provider Internal Medicine Cardiovascular Disease; Visit Provider Internal Medicine Cardiovascular Disease
DX: I10 Essential (primary) hypertension (principal); R00.2 Palpitations
CPT/HCPCS: 75574; 76380; 93306; Q9967

== ENCOUNTER → 2023-08-03 | Outpatient (CLI) | payer OTHER, SELFPAY | END | disposition home or self-care (01) | LOC: BFHLAB 10:52 | PROVIDERS: PCP Family Medicine; Referring Provider Family Medicine; Visit Provider Family Medicine | DX: Z12.5 Encounter for screening for malignant neoplasm of prostate (principal) | CPT/HCPCS: 36415; 84153; G0103 ==

== ENCOUNTER → 2023-09-22 | Outpatient (CLI) | payer OTHER, SELFPAY ==
--- NOTE | 2023-09-22 10:02 | CDU_ITS ---
Reason For Study: HLD Rt. Velocities/BP Lt. Velocities/BP Prox CCA 99.7/26.7 cm/sec. Prox CCA 97.9/28.5 cm/sec. Mid CCA 72.4/18.6 cm/sec. Mid CCA 85.5/25.3 cm/sec. Dist CCA 65.8/24.1 cm/sec. Dist CCA 78.1/26.5 cm/sec. Prox ICA 58.1/21.9 cm/sec. Prox ICA 53.5/22.8 cm/sec. Mid ICA 68.0/27.4 cm/sec. Mid ICA 69.5/30.2 cm/sec. Dist ICA 63.6/21.9 cm/sec. Dist ICA 66.6/29.2 cm/sec. Rt. ICA/CCA = 0.9. Lt. ICA/CCA = 0.8. Prox ECA 93.3/16.4 cm/sec. Prox ECA 88.6/17.1 cm/sec. Rt. Vert. 31.0/9.7 cm/sec. Lt. Vert. 46.8/17.1 cm/sec. Right Extracranial There is intimal thickening but no significant atherosclerotic plaque noted in the right common carotid artery. There is intimal thickening but no significant atherosclerotic plaque noted in the right internal carotid artery. There is intimal thickening but no significant atherosclerotic plaque noted in the right external carotid artery. Antegrade flow is noted in the right vertebral artery. Left Extracranial There is intimal thickening but no significant atherosclerotic plaque noted in the left common carotid artery. There is intimal thickening but no significant atherosclerotic plaque noted in the left internal carotid artery. There is intimal thickening but no significant atherosclerotic plaque noted in the left external carotid artery. Antegrade flow is noted in the left vertebral artery. VL/Carotid Duplex Ultrasound Interpretation Summary Normal right extracranial internal carotid. Normal left extracranial internal carotid. Patent and antegrade vertebrals bilaterally. Ordering Physician: Christiano Holland Referring Physician: Christiano Holland Performed By: Marlo Hernandez RVT and Student
== END | disposition home or self-care (01) ==
LOC: CVS 10:01
PROVIDERS: PCP Family Medicine; Referring Provider Family Medicine; Visit Provider Family Medicine
DX: Z13.6 Encounter for screening for cardiovascular disorders (principal); I10 Essential (primary) hypertension; E78.5 Hyperlipidemia, unspecified
CPT/HCPCS: 93880

== ENCOUNTER → 2024-03-08 | Outpatient (CLI) | payer OTHER, SELFPAY ==
[2024-03-08 11:09] LABS: AST(SGOT) 32 U/L (15-37); Alanine Aminotransfer ALT/SGPT 56 U/L (16-61); Albumin, Serum 3.9 g/dL (3.2-5.0); Alkaline Phosphatase 124 U/L (45-117); Anion Gap 6 (5-15); BUN 18 mg/dL (7-18); BUN/Creat Ratio 16.7 RATIO (10-20); Bilirubin, Direct 0.12 mg/dL (0.00-0.30); Calcium,Total 9.2 mg/dL (8.5-10.1); Chloride 108 mmol/L (98-107); Cholesterol 343 mg/dL (200); Creatinine, Serum 1.08 mg/dL (0.70-1.30); EST Glomerular Filtration Rate 76 mL/min (>60); Est Glom Filt Rate - Afr Amer 93 mL/min (>60); Globulin 3.5 g/dL (2.2-4.2); Glucose 99 mg/dL (74-106); High Density Lipoprotein 52 mg/dL; Potassium 3.7 mmol/L (3.5-5.1); Protein, Total 7.4 g/dL (6.4-8.2); Sodium Level 140 mmol/L (136-145); Triglycerides 279 mg/dL; Very Low Density Lipoprotein 56 mg/dL (5-40)
== END | disposition home or self-care (01) ==
LOC: MTLAB 08:26
PROVIDERS: PCP Family Medicine; Referring Provider Nurse Practitioner Gerontology; Visit Provider Internal Medicine Cardiovascular Disease
DX: E78.5 Hyperlipidemia, unspecified (principal); I10 Essential (primary) hypertension; R00.2 Palpitations
CPT/HCPCS: 36415; 80048; 80061; 80076

== ENCOUNTER 2024-03-22 06:54 | Day surgery (SDC) | payer OTHER, SELFPAY ==
--- NOTE | 2024-03-20 13:36 | PAT.ANE_ITS ---
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 When Was Last Pacemaker Check QUESTION #4 FULL TEXT: You/Your Family Experience fever (hyperthermia) with Anesthesia Last Oral Intake Last Oral intake: Last Oral Intake NPO since Meds taken in AM with sips of water? Meds patient instructed to take am of surgery PONV PONV - disc pad knockout worker: PONV - disc pad knockout worker Female No 03/20/24 11:42 HX of Motion Sickness No 03/20/24 11:42 HX of N/V After Surgery No 03/20/24 11:42 Non-Smoker Yes 03/20/24 11:42 Duration of Surgery greater No 03/20/24 11:42 than 60 minutes Number of Risk Factors 1 03/20/24 11:42 PONV Score Low Risk 03/20/24 11:42 Height & Weight Height & Weight: Anesthesia: Height & Weight Height 5 ft 11 in 01/19/24 11:28 Respiratory Assessment Respiratory Assessment - disc pad knockout worker: Respiratory Tract Infection Hx - disc pad knockout worker Hx Respiratory Tract Infection No 03/20/24 11:42 STOP Sleep Apnea STOP Sleep Apnea - disc pad knockout worker: STOP Sleep Apnea - disc pad knockout worker Hx Hypertension Yes: STOPPED BP MEDS 5 DAYS 03/20/24 11:42 AGO PER PATIENT Hx Sleep Apnea No 03/20/24 11:42 CPAP BIPAP Do you snore loudly (louder No 03/20/24 11:42 than talking or can be heard Do you often feel tired/ Yes 03/20/24 11:42 fatigued/ sleepy during daytime? Has anyone observed you stop No 03/20/24 11:42 breathing during sleep? STOP Results Positive 03/20/24 11:42 QUESTION #5 FULL TEXT : Do you snore loudly (louder than talking or can be heard through closed doors)? 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 Specify any problems Hx of Preganancy in last 3 N/A 03/20/24 11:42 Months Nurse Filling Out Transfusion DSCHRIBER 03/20/24 11:42 & Questions: Date: 03/20/24 03/20/24 11:42 Time: 11:43 03/20/24 11:42 Patient unable to answer at this time (ie. confused, unrespo /Reproduction History /Reproductive History - disc pad knockout worker: /Reproductive Hx- disc pad knockout worker Hx Now No 03/20/24 11:42 Gestational Age (in weeks): EDC: Hx Hx Para Hx Section SAB No 03/20/24 11:42 PFSH Medical History (Updated 03/20/24 @ 11:49 by Zoey Burger) Loss of hearing Wears contact lenses Cancer Alcohol use Arthritis High cholesterol Heartburn Back pain Non-smoker History of stress test History of echocardiogram History of pain when walking History of edema Hypertension Cardiology follow-up encounter History of tibial fracture Right tibial fracture Dyslipidemia Abnormal cardiovascular stress test Dyspnea on exertion History of posterior vitreous detachment Hamstring tear ED (erectile dysfunction) Headache, migraine Osteoporosis of multiple sites DDD (degenerative disc disease), cervical History of melanoma Essential hypertension Abrasion of right arm Bronchitis Hay fever Shoulder pain Skin cancer Asymptomatic hypertension Palpitations Atelectasis Hyperlipidemia Degenerative disc disease, lumbar GERD (gastroesophageal reflux disease) Home Medications ?Medication ?Instructions ?Recorded ?Last Taken ?Type albuterol sulfate 90 mcg/actuation 1 - 2 puff inhalation Q4H PRN PRN 11/30/20 Unknown Rx aerosol inhaler (Ventolin HFA) shortness of breath or wheezing #8.5 grams multivitamin 1 tab PO DAILY 03/02/21 Unknown History calcium 315 mg (as 1 tab PO QDAY 01/19/24 Unknown History citrate)-vitamin D3 5 mcg (200 unit) tablet (Calcium Citrate + D) Allergy/AdvReac Type Severity Reaction Status Date / Time No Known Allergies Allergy Verified 03/20/24 11:40 Family History Daughter Celiac disease Other Breast cancer COPD (chronic obstructive pulmonary disease) Cancer Heart disease Seizures Surgical History (Updated 03/20/24 @ 11:49 by Zoey Burger) Hx of lumbar discectomy Hx of repair of right rotator cuff Hx of tonsillectomy (~2017) Hx of vasectomy (~1998) History of back surgery H/O rotator cuff surgery Social History household members: spouse current occupational status: employed current occupation: [employer] Smoking Status: Never smoker alcohol intake: current alcohol intake frequency: a few times a week Alcohol type: beer and hard liquor substance use type: does not use caffeine: Yes Type: coffee Number of servings: 2 Audit: Pertinent Findings Pertinent Findings EKG Perinent findings: nsr 04/22/23 Echo (EF%) pertinent findings: EF 65 05/2023 Consult pertinent findings: abnl stress test 05/2023. wkup neg. cont med management Recommendation Anesthesia Recommendation Anesthesia recommendation: OPTIMIZED for anesthesia
[2024-03-22] VITALS (8 sets, daily range): BP systolic 101–135; BP diastolic 67–86; PULSE 56–69; RESP 16; TEMP 36.2–36.3; O2SAT 97–99; BMI 27.3
--- NOTE | 2024-03-22 07:08 | HP.PCM_ITS ---
[facility] - General General Date of Admission: 03/22/24 Date of Service: 03/22/24 Chief Complaint: Screening colonoscopy HPI Narrative MART HDZ, is a 53 M who presents today for his first colonoscopy. He has not had a colonoscopy in the past. He has only mild hypertension which is controlled with exercise and diet. He does have a history of intermittent asthma which is only controlled with as needed albuterol. He takes no medicines on a daily basis. [facility] Medical History Loss of hearing Wears contact lenses Cancer Alcohol use Arthritis High cholesterol Heartburn Back pain Non-smoker History of stress test History of echocardiogram History of pain when walking History of edema Hypertension Cardiology follow-up encounter History of tibial fracture Right tibial fracture Dyslipidemia Abnormal cardiovascular stress test Dyspnea on exertion History of posterior vitreous detachment Hamstring tear ED (erectile dysfunction) Headache, migraine Osteoporosis of multiple sites DDD (degenerative disc disease), cervical History of melanoma Essential hypertension Abrasion of right arm Bronchitis Hay fever Shoulder pain Skin cancer Asymptomatic hypertension Palpitations Atelectasis Hyperlipidemia Degenerative disc disease, lumbar GERD (gastroesophageal reflux disease) Home Medications ?Medication ?Instructions ?Recorded ?Last Taken ?Type albuterol sulfate 90 mcg/actuation 1 - 2 puff inhalation Q4H PRN PRN 11/30/20 Unknown Rx aerosol inhaler (Ventolin HFA) shortness of breath or wheezing #8.5 grams multivitamin 1 tab PO DAILY 03/02/21 Unknown History calcium 315 mg (as 1 tab PO QDAY 01/19/24 Unknown History citrate)-vitamin D3 5 mcg (200 unit) tablet (Calcium Citrate + D) Allergy/AdvReac Type Severity Reaction Status Date / Time No Known Allergies Allergy Verified 03/22/24 07:09 Family History Daughter Celiac disease Other Breast cancer COPD (chronic obstructive pulmonary disease) Cancer Heart disease Seizures Surgical History (Updated 03/20/24 @ 11:49 by Zoey Burger) Hx of lumbar discectomy Hx of repair of right rotator cuff Hx of tonsillectomy (~2017) Hx of vasectomy (~1998) History of back surgery H/O rotator cuff surgery Social History household members: spouse current occupational status: employed current occupation: [employer] Smoking Status: Never smoker alcohol intake: current alcohol intake frequency: a few times a week Alcohol type: beer and hard liquor substance use type: does not use caffeine: Yes Type: coffee Number of servings: 2 ROS Constitutional Constitutional: Denies fatigue, fever(s), poor appetite, weight gain or weight loss Gastrointestinal Gastrointestinal: Denies belching, bloating, change in bowel habits, change in stool character, chewing difficulty, coffee ground emesis, constipation, cramping, diarrhea, dyspepsia, dysphagia, early satiety, excessive flatus, fecal incontinence, heartburn, hematemesis, hematochezia, hemorrhoids, loose stools, melena, nausea, odynophagia, rectal bleeding, tenesmus, vomiting or weight changes Physical Exam Const alert, oriented x3, no apparent distress and healthy appearing General Appearance: cooperative GI normal to inspection, nondistended, normoactive bowel sounds, soft to palpation, non-tender and non-distended Percussion: normal to percussion Rectal Exam: deferred Assessment & Plan Assessment/Plan (1) Encounter for screening for malignant neoplasm of colon: PLAN: He was explained alternatives, risk, benefits include not withstanding bleeding, infection, sepsis, perforation, need for more charge and . He will have an ASA of 3.
--- NOTE | 2024-03-22 07:28 | PCM.PRE.AN2 ---
ASA Classification* ASA Classification ASA Classification: 3 Assessment & Plan Anesthesia* Anesthesia Assessment Anesthesia Assessment: Discussed sedation and/or anesthesia options, risks, benefits, and alternatives with patient/parents/legal guardian/POA. Questions invited. The patient/parents/legal guardian/POA seems to understand and agrees to proceed with anesthesia plan. Reviewed the physical assessment, medical history, allergy history and patient home medications list prior to surgery/procedure/anesthetic and documented any changes. Performed airway and anesthesia risk assessments. Anesthesia Type Anesthesia Type: MAC Anesthesia Focused Assessment* Temperature: 97.4 F Pulse Rate: 69 Blood Pressure: 135/86 Respiratory Rate: 16 Pulse Ox: 99 Airway Assessment Mouth opens: >3 cm Mallampati Score: II Focused Labs Anesthesia Preop lab: CBC WBC 5.3 K/mm3 (4.4-11.0) 07/30/22 11:31 RBC 4.86 M/mm3 (4.6-6.2) 07/30/22 11:31 Hgb 14.6 g/dL (13.0-16.5) 07/30/22 11:31 Hct 43.3 % (40-54) 07/30/22 11:31 Plt Count 268 K/mm3 (150-450) 07/30/22 11:31 CHEMISTRY Potassium 3.7 mmol/L (3.5-5.1) 03/08/24 08:26 Sodium 140 mmol/L (136-145) 03/08/24 08:26 BUN 18 mg/dL (7-18) 03/08/24 08:26 Creatinine 1.08 mg/dL (0.70-1.30) 03/08/24 08:26 Glucose 99 mg/dL (74-106) 03/08/24 08:26 TSH 2.45 uIU/mL (0.358-3.74) 08/07/19 08:51 COAG Pre-Assessment Diagnosis/Proposed Procedure Planned Operative Procedure(s): CSCOPE OA Anesthesia History 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 When Was Last Pacemaker Check QUESTION #4 FULL TEXT: You/Your Family Experience fever (hyperthermia) with Anesthesia Last Oral Intake Last Oral intake: Last Oral Intake NPO since 20:00 03/22/24 07:10 Meds taken in AM with sips of No 03/22/24 07:10 water? Meds patient instructed to take am of surgery PONV PONV - soakers supervisor: PONV - soakers supervisor Female No 03/20/24 11:42 HX of Motion Sickness No 03/20/24 11:42 HX of N/V After Surgery No 03/20/24 11:42 Non-Smoker Yes 03/20/24 11:42 Duration of Surgery greater No 03/20/24 11:42 than 60 minutes Number of Risk Factors 1 03/20/24 11:42 PONV Score Low Risk 03/20/24 11:42 Height & Weight Height & Weight: Anesthesia: Height & Weight Height 5 ft 11 in 03/22/24 07:10 Weight: 89 kg 03/22/24 07:10 Body Mass Index (BMI) 27.3 03/22/24 07:10 Respiratory Assessment Respiratory Assessment - soakers supervisor: Respiratory Tract Infection Hx - soakers supervisor Hx Respiratory Tract Infection No 03/20/24 11:42 STOP Sleep Apnea STOP Sleep Apnea - soakers supervisor: STOP Sleep Apnea - soakers supervisor Hx Hypertension Yes: STOPPED BP MEDS 5 DAYS 03/20/24 11:42 AGO PER PATIENT Hx Sleep Apnea No 03/20/24 11:42 CPAP BIPAP Do you snore loudly (louder No 03/20/24 11:42 than talking or can be heard Do you often feel tired/ Yes 03/20/24 11:42 fatigued/ sleepy during daytime? Has anyone observed you stop No 03/20/24 11:42 breathing during sleep? STOP Results Positive 03/20/24 11:42 QUESTION #5 FULL TEXT : Do you snore loudly (louder than talking or can be heard through closed doors)? Tobacco Use History Tobacco Use History - soakers supervisor: Tobacco Use History - soakers supervisor Tobacco Use Smoking Status Never smoker 03/20/24 11:42 Hx Tobacco Use No 03/20/24 11:42 Years Smoking Packs Smoked per Day Smoking Cessation Date was within the last 15 years Hx Smoking Cessation Date Hx Smoking Cessation Counseling Hematologic Medial History Hematologic Hx - soakers supervisor: Hematologic Medical Hx - roustabout pusher Hx of Blood Transfusion No 03/20/24 11:42 Hx of Transfusion in last 3 No 03/20/24 11:42 Months Date of Last Transfusion (if within last 3 months) Ever experience any problems No 03/20/24 11:42 with transfusion(s)? Specify any problems Hx of Preganancy in last 3 N/A 03/20/24 11:42 Months Nurse Filling Out Transfusion DSCHRIBER 03/20/24 11:42 & Questions: Date: 03/20/24 03/20/24 11:42 Time: 11:43 03/20/24 11:42 Patient unable to answer at this time (ie. confused, unrespo /Reproduction History /Reproductive History - soakers supervisor: /Reproductive Hx- soakers supervisor Hx Now No 03/20/24 11:42 Gestational Age (in weeks): EDC: Hx Hx Para Hx Section SAB No 03/20/24 11:42 PFSH Medical History Loss of hearing Wears contact lenses Cancer Alcohol use Arthritis High cholesterol Heartburn Back pain Non-smoker History of stress test History of echocardiogram History of pain when walking History of edema Hypertension Cardiology follow-up encounter History of tibial fracture Right tibial fracture Dyslipidemia Abnormal cardiovascular stress test Dyspnea on exertion History of posterior vitreous detachment Hamstring tear ED (erectile dysfunction) Headache, migraine Osteoporosis of multiple sites DDD (degenerative disc disease), cervical History of melanoma Essential hypertension Abrasion of right arm Bronchitis Hay fever Shoulder pain Skin cancer Asymptomatic hypertension Palpitations Atelectasis Hyperlipidemia Degenerative disc disease, lumbar GERD (gastroesophageal reflux disease) Home Medications ?Medication ?Instructions ?Recorded ?Last Taken ?Type albuterol sulfate 90 mcg/actuation 1 - 2 puff inhalation Q4H PRN PRN 11/30/20 Unknown Rx aerosol inhaler (Ventolin HFA) shortness of breath or wheezing #8.5 grams multivitamin 1 tab PO DAILY 03/02/21 03/21/24 History calcium 315 mg (as 1 tab PO QDAY 01/19/24 03/21/24 History citrate)-vitamin D3 5 mcg (200 unit) tablet (Calcium Citrate + D) Allergy/AdvReac Type Severity Reaction Status Date / Time No Known Allergies Allergy Verified 03/22/24 07:09 Family History Daughter Celiac disease Other Breast cancer COPD (chronic obstructive pulmonary disease) Cancer Heart disease Seizures Surgical History Hx of lumbar discectomy Hx of repair of right rotator cuff Hx of tonsillectomy (~2017) Hx of vasectomy (~1998) History of back surgery H/O rotator cuff surgery Social History household members: spouse current occupational status: employed current occupation: [employer] Smoking Status: Never smoker alcohol intake: current alcohol intake frequency: a few times a week Alcohol type: beer and hard liquor substance use type: does not use caffeine: Yes Type: coffee Number of servings: 2 Review of Systems (Anesthesia) ROS Narrative System reviewed and no additional complaints, except as documented.
--- NOTE | 2024-03-22 07:56 | OP.COLON_ITS ---
Patient Name: Tony Hughes Procedure Date: 03/22/2024 7:32 AM Date of : 1970 Age: 53 Procedure: Colonoscopy Indications: Screening for colorectal malignant neoplasm Providers: Robbie Yeboah DO Medicines: Monitored Anesthesia Care Patient Profile: This is a 53 year old male. Refer to note in patient chart for documentation of history and physical. Last Colonoscopy: none. The patient's first colonoscopy is today. Complications: No immediate complications. Procedure: Pre-Anesthesia Assessment: - Prior to the procedure, a History and Physical was performed, and patient medications and allergies were reviewed. The patient is competent. The risks and benefits of the procedure and the sedation options and risks were discussed with the patient. All questions were answered and informed consent was obtained. Patient identification and proposed procedure were verified by the physician in the pre-procedure area. Mental Status Examination: alert and oriented. Airway Examination: normal oropharyngeal airway and neck mobility. Respiratory Examination: clear to auscultation. CV Examination: normal. Prophylactic Antibiotics: The patient does not require prophylactic antibiotics. Prior Anticoagulants: The patient has taken no anticoagulant or antiplatelet agents except for NSAID medication. ASA Grade Assessment: II - A patient with mild systemic disease. After reviewing the risks and benefits, the patient was deemed in satisfactory condition to undergo the procedure. The anesthesia plan was to use monitored anesthesia care (MAC). Immediately prior to administration of medications, the patient was re-assessed for adequacy to receive sedatives. The heart rate, respiratory rate, oxygen saturations, blood pressure, adequacy of pulmonary ventilation, and response to care were monitored throughout the procedure. The physical status of the patient was re-assessed after the procedure. After I obtained informed consent, the scope was passed under direct vision. Throughout the procedure, the patient's blood pressure, pulse, and oxygen saturations were monitored continuously. The pediatric colonoscope was introduced through the anus and advanced to the cecum, identified by appendiceal orifice and ileocecal valve. The colonoscopy was performed without difficulty. The patient tolerated the procedure well. The quality of the bowel preparation was adequate. The ileocecal valve, appendiceal orifice, and rectum were photographed. Scope In: 7:39:08 AM Scope Withdrawal Time 0 hours 9 minutes 49 seconds Scope Out: 7:53:31 AM Total Procedure Duration Time 0 hours 14 minutes 23 seconds Findings: The perianal and digital rectal examinations were normal. A few small-mouthed diverticula were found in the recto-sigmoid colon and sigmoid colon. The exam was otherwise without abnormality on direct and retroflexion views. Impression: - Diverticulosis in the recto-sigmoid colon and in the sigmoid colon. - The examination was otherwise normal on direct and retroflexion views. - No specimens collected. Recommendation: - Discharge patient to home. - Resume previous diet. - Continue present medications. - Repeat colonoscopy in 10 years for screening purposes. Procedure Code(s): --- Professional --- G0121, Colorectal cancer screening; colonoscopy on individual not meeting criteria for high risk CPT copyright 2021 [employer]. All rights reserved. The codes documented in this report are preliminary and upon marketing consultant review may be revised to meet current compliance requirements. Robbie Yeboah DO 03/22/2024 7:56:11 AM This report has been signed electronically. Number of Addenda: 0 Note Initiated On: 03/22/2024 7:32 AM
--- NOTE | 2024-03-22 07:56 | OP.CCLET_ITS ---
03/22/2024 Christiano Holland [id number] [place] [address] Re : Colonoscopy procedure for Tony Hughes Dear Dr. Holland This procedure was performed on Friday, March 22, 2024. My impressions and recommendations are as follows: Impressions : - Diverticulosis in the recto-sigmoid colon and in the sigmoid colon. - The examination was otherwise normal on direct and retroflexion views. - No specimens collected. Recommendations : - Discharge patient to home. - Resume previous diet. - Continue present medications. - Repeat colonoscopy in 10 years for screening purposes. My findings are described in the full procedure note, which is enclosed. If I can be of further assistance, please feel free to contact me at . Sincerely, Robbie Yeboah, 03/22/2024 7:56:11 AM This report has been signed electronically.
--- NOTE | 2024-03-22 08:03 | PCM.POST.ANE ---
Anesthesia: Postop Eval I Current Vital Signs Temperature: 97.1 F Pulse Rate: 64 Blood Pressure: 104/67 Respiratory Rate: 16 Pulse Ox: 97 Oxygen Delivery Method: Room Air Assessment Airway patent: Yes Spontaneous unlabored respirations: Yes Mental status: Asleep nausea: No Vomiting: No Anesthesia Complication: No Fluid Hydration Crystalloid volume administer (ml): 50 Total IV fluid infused: 50 Progress Note Anesthesia document: Postop Eval 1 completed: Yes
--- NOTE | 2024-03-22 08:35 | PCM.POSTANE2 ---
Anesthesia Postop Eval I Sum Postop Eval Completion status Anesthesia document: Postop Eval 1 completed: Yes Anesthesia Postop Eval I Summary Anesthesia Postop Eval I Summary: Anesthesia Postop Eval I: Assessment Summary Airway patent Yes 03/22/24 08:03 [email or web address] Spontaneous unlabored Yes 03/22/24 08:03 [email or web address] respirations Mental status Asleep 03/22/24 08:03 [email or web address] nausea No 03/22/24 08:03 [email or web address] Vomiting No 03/22/24 08:03 [email or web address] Anesthesia Postop Eval I: Fluid Summary Crystalloid volume administer 50 03/22/24 08:03 [email or web address] (ml) Colloids volume administered ( ml) Blood Product volume administered (ml) Total IV fluid infused 50 03/22/24 08:03 [email or web address] Anesthesia Postop Eval I: Summary Notes Anesthesia Complication No 03/22/24 08:03 [email or web address] Anesthesia Complication Comment: Post-operative progress note Anesthesia: Postop Eval II Evaluation Mental status: Awake Pain Level: 0 nausea: No Vomiting: No
== END 2024-03-22 09:14 | disposition home or self-care (01) ==
LOC: EN 06:55 → AC 06:56
PROVIDERS: PCP Family Medicine; Referring Provider Family Medicine; Visit Provider Internal Medicine Gastroenterology
PROC: 0DJD8ZZ Inspection of Lower Intestinal Tract, Via Natural or Artificial Opening Endoscopic (ICD-10-PCS; CPT 45378; principal; 2024-03-22 07:55)
DX: Z12.11 Encounter for screening for malignant neoplasm of colon (principal); K57.30 Diverticulosis of large intestine without perforation or abscess without bleeding; I10 Essential (primary) hypertension; E78.00 Pure hypercholesterolemia, unspecified; J45.909 Unspecified asthma, uncomplicated; K21.9 Gastro-esophageal reflux disease without esophagitis
CPT/HCPCS: 45378; A4216; J2405

== ENCOUNTER 2024-05-03 10:00 | Outpatient (RCR) | payer OTHER, SELFPAY ==
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
--- NOTE | 2024-03-23 16:50 | HP.PTREVAL ---
Re-Evaluation Intro: Dr. Steve Trivedi MD, It has been my pleasure to treat MART HDZ over the last 19 visits for R tibial fracture s/p ORIF around 12/20. Please see the progress note below for an update on the physical therapy plan of care! Subjective Subjective: Pain level is not bad. Knee pain on R side eralier in the week was limiting function. Has to avoid stadning on bike. Doing band and stretching daily. to Doctor on 04/03 Sleep is good. Activities at home getting back to normal, has not been to cross fit and does not run. Remodelling going well, ladder Ok. Objective Objective/Function: 08/07 ankle strength B without pain, able to walk on toes and heels without pain. AROM R ankle 5 DF and 50 PF similar to L. inv and eversion are also near symmetrical . R ankle still swollen but not painful today, knee on R side hurts somewhat at times, no antalgia today, steps reciprocally without rail I using forefoot appropriately. Hesitant on lateral movement. Walking with limp mostly form wide BEBE and corrects to a nice gait pattern when cued to narrow BEBE. Overall nice progress Plan Plan Plan: Pt to doctor 04/03, Will continue 2x/week for 3-4 weeks for... 1. ensure walking with narrow BEBE adn no antalgia in gait 2. progress SLOWLY and without pain with jogging if walking is without deviaitions, lateral movement and gentle plyo and monitor tolerance up to doctor visit 04/03 Balance/Gait/Functional tests Balance/Special Test Scores Lower Extremity Functional Score: 62 Goals Goals Goal 1:: ST: full symmetrical AROM ankle adn knee R to L Goal Time Frame: 2-4 Weeks Goal Progress: Goal Met Goal 2:: ST: patient I in appropriate ROM adn PWB R gait with crutches and boot. Also return to gym for upper body and core workout not involving R leg Goal Time Frame: 2-4 Weeks Goal Progress: Goal Met Goal 3:: LT: walks as allowed by physician without boot or AD in community I without gait deviations Goal Time Frame: 4-6 Weeks Goal Progress: Goal Met Goal 4:: steps recirpocally without pain or deviation Goal Time Frame: 4-6 Weeks Goal Progress: Goal Met Goal 5:: Plan to return to full duty work Goal Time Frame: 12-16 Weeks Goal Progress: Progressing Goal 6:: LEFS 76 Goal Time Frame: 12-16 Weeks Goal Progress: Progressing Anticipated Interventions Anticipated Interventions Patient/Client Instruction: Educate patient on: Condition and Plan of Care For the Purpose of:: To decrease pain, To increase ROM, To improve nutrient delivery to tissue, To improve muscle performance and motor function and To improve gait and locomotor functions Therapeutic Exercise to Include: Strength training, Balance training, Postural training, Flexibilty training, Passive ROM and Active ROM For the Purpose of:: To decrease pain, To increase ROM, To improve nutrient delivery to tissue, To improve muscle performance and motor function, To increase tolerance to activity/condition/position and To improve gait and locomotor functions Manual Therapy Techniques to Include: Scar massage, Mobilization, Passive ROM and Soft tissue mobilization For the Purpose of:: To decrease pain, To increase ROM, To improve nutrient delivery to tissue, To increase oxygenation perfusion, To improve muscle performance and motor function and To increase tolerance to activity/condition/position Cryotherapy (ice pack, ice massage): Yes For the Purpose of:: To decrease swelling/inflammation Re-Evaluation Ending Re-evaluation ending: Please do not hesitate to contact me at [phone] by phone or if you have questions or concerns regarding this new plan of care! Sincerely, Godfrey Galeas, DPT, OCS, CSCS
--- NOTE | 2024-05-09 15:12 | HP.PT.NRP ---
Patient Information Patient Information: MART HDZ was seen in my office for initial evaluation on 01/13/24. The following Plan of Care was established for this patient: POC Established Initial Frequency: 2-3x /Week Initial Duration: 4 Months Anticipated Interventions Patient/Client Instruction: Educate patient on: Condition and Plan of Care For the Purpose of:: To decrease pain, To increase ROM, To improve nutrient delivery to tissue, To improve muscle performance and motor function and To improve gait and locomotor functions Therapeutic Exercise to Include: Strength training, Balance training, Postural training, Flexibilty training, Passive ROM and Active ROM For the Purpose of:: To decrease pain, To increase ROM, To improve nutrient delivery to tissue, To improve muscle performance and motor function, To increase tolerance to activity/condition/position and To improve gait and locomotor functions Manual Therapy Techniques to Include: Scar massage, Mobilization, Passive ROM and Soft tissue mobilization For the Purpose of:: To decrease pain, To increase ROM, To improve nutrient delivery to tissue, To increase oxygenation perfusion, To improve muscle performance and motor function and To increase tolerance to activity/condition/position Cryotherapy (ice pack, ice massage): Yes For the Purpose of:: To decrease swelling/inflammation Last Seen Last Seen: This patient was last seen in our office 05/02/24. Pertinent comments regarding their Physical therapy will appear below: Pt seen 28 visits of POC and was 90+% better. he cancelled his remaining couple visits stating that doctor had cleared him and therefore I will discontinue him from my care. At this point I will be discontinuing this patient from physical therapy. I would be happy to see this patient again in the future if found appropriate by the physician. Thank you! Godfrey Galeas, DPT, OCS, CSCS Balance/Gait/Functional tests Balance/Special Test Scores Lower Extremity Functional Score: 63
== END 2024-05-03 19:00 | disposition home or self-care (01) ==
LOC: PT 10:00
PROVIDERS: PCP Family Medicine; Referring Provider Orthopaedic Surgery Sports Medicine; Visit Provider Orthopaedic Surgery Sports Medicine
DX: S82.201D Unspecified fracture of shaft of right tibia, subsequent encounter for closed fracture with routine healing (principal)
CPT/HCPCS: 97110; 97140; 97161; 97530

== ENCOUNTER → 2024-09-19 | Outpatient (CLI) | payer OTHER, SELFPAY ==
[2024-09-19 12:35] LABS: Absolute Lymphocyte Count 2.42 X10^3/uL (0.83-4.51); Absolute Neutrophil Count 3.9 X10^3/uL (2.0-7.7); Basophil# 0.05 X10^3/uL; Basophil% 0.7 % (0-1); Eosinophil# 0.07 X10^3/uL; Hematocrit 41.4 % (40-54); Hemoglobin 14.1 g/dL (13.0-16.5); Lymphocyte # 2.42 X10^3/ul (0.83-4.51); Lymphocyte % 34.9 % (19-41); Mean Corp Hgb Conc 34.1 g/dL (32-36); Mean Corpuscular Hgb 29.6 pg (27.0-32.0); Mean Platelet Vol. 10.7 fl (6.2-12.0); Monocyte# 0.48 X10^3/uL; Monocyte% 6.9 % (0-10); NRBC Flagged by Analyzer 0 % (0-5); Neutrophil # 3.87 X10^3/uL (2.7-7.7); Neutrophil % 55.9 % (47-70); Platelet Count 273 K/mm3 (150-450); RBC Distribution Width CV 12.3 % (11.6-14.6); RBC Distribution Width SD 39.2 fl (35.1-43.9); Red Blood Count 4.76 M/mm3 (4.6-6.2); White Blood Count 6.9 K/mm3 (4.4-11.0)
[2024-09-19 14:32] LABS: ALB/GLOB Ratio 1.8 RATIO (0.9-2.4); AST(SGOT) 50 U/L (<=37); Alanine Aminotransfer ALT/SGPT 47 U/L (<=46); Albumin, Serum 4.4 g/dL (3.5-5.0); Alkaline Phosphatase 82 U/L (40-129); Anion Gap 11 (5-15); BUN 20 mg/dL (4-19); BUN/Creat Ratio 20.4 RATIO (10-20); Calcium,Total 9.5 mg/dL (7.6-11.0); Carbon Dioxide 23.1 mmol/L (21.0-32.0); Chloride 106 mmol/L (98-108); Cholesterol 287 mg/dL (<=200); Creatinine, Serum 0.96 mg/dL (0.70-1.20); EST Glomerular Filtration Rate 95 (>60); Globulin 2.5 g/dL (2.2-4.2); Glucose 97 mg/dL (70-99); High Density Lipoprotein 43 mg/dL; Low Density Lipoprotein Calc. 199 mg/dL; PSA,Total - Annual Screen 0.74 ng/mL (0.02-4.00); Protein, Total 6.9 g/dL (5.9-8.4); Sodium Level 140 mmol/L (133-145); Total Bilirubin 0.32 mg/dL (0.00-1.30); Triglycerides 225 mg/dL; Very Low Density Lipoprotein 45 mg/dL (5-40); cholesterol:hdl ratio screen 6.67
--- OUTSIDE RECORDS SUMMARY | 2024-09-19 20:51 | XMS RPT_ITS | CCD ---
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 provided and the decisions made by me, Dr. Steve Trivedi MD 04/03/24 0810. Part of today???s visit was documented by [ ], acting as scribe. MART HUGHES is a 53 year old M here today for 3.5 months follow-up right tibia fracture IM nail and open reduction internal fixation by another surgeon. The patient still having some pain at the fracture site able to jog about 3 minutes on the treadmill. Still feeling a little bit like the legs turned out slightly overall the issues are slowly resolving. Ortho Exam General General: Yes no acute distress Neurologic: Yes alert and Yes oriented x3 Psychologic: Yes reasonable and appropriate Right Knee Skin/Wound: Yes CDI, Yes healed, No erythema, No ecchymosis and No swelling Knee ROM: Yes ROM-Flexion 0-140 KNEE: no effusion Right Foot/Ankle Skin/Wound: Yes CDI, healed and Soft Tissue Swelling; No Ecchymosis or Erythema Exam: present tender to palpate - over fracture site; absent TTP Lateral Malleolus or TTP Medial Malleolus Dorsiflexion 0-20: 0 degrees Plantar Flexion 0-40: 40 degrees Compartments: Compartments: soft Motor: Ankle Dorsiflextion: 5, Ankle Plantar Flexion: 5, Ankle Eversion: 5, Ankle Inversion: 5 and EHL: 5 Sensation: Deep Peroneal Nerve: I, Superficial Peroneal Nerve: I, Tibial Nerve: I, Sural Nerve: I and Saphenous Nerve: I Pulses: Dorsalis Pedis: 2 Supplemental Info AP lateral x-rays taken today of the right tibia and fibula reveal good progressive callus formation and good alignment of the fracture. Fracture site still visible Coding Level of Care Code Global Post Op Diagnoses Right tibial fracture S82.201A Assessment and Plan Assessment and Plan (1) Right tibial fracture: Status: Acute Plan: MART HUGHES is a 53 year old M here today for 3.5 months follow-up right tibia fracture IM nail and open reduction internal fixation by another surgeon. Good progressive u (more content not included)... Normal [facility] Tibia Fibula 2 Viewson 04-03 Tibia Fibula 2 Views [facility] [address] [place] [address] Tibia Fibula 2 Views MR#: [id number] Acct: [id number] Name: MART HUGHES Rep #: [id number] : 1970 M 53 From: Manny Navarrete MD PCP: Dr. Ramon Holland, Status: DEP AMB Study: Tibia Fibula 2 Views Date of Exam: 04/03/24 Exam# [id number] Ordering Dr: Steve Trivedi MD [id number] STUDY: X-RAY - RIGHT TIBIA AND FIBULA REASON FOR EXAM: Male, 53 years old. fu TECHNIQUE: 2 view(s) of the tibia and fibula were obtained. COMPARISON: 02/10/2024 FINDINGS: Healing fracture of the distal shaft of the tibia with an intramedullary kaycee and callus formation. Healing fracture of the distal shaft of the fibula with callus formation. The soft tissue structures are unremarkable. RAD/Tibia Fibula 2 Views IMPRESSION: Healing fractures of the distal tibia and fibula after open reduction internal fixation. Electronically Signed: Manny Navarrete MD at 18:20 EST , CC: Dr. Ramon Holland, DO; Dr. Steve Trivedi MD Senior Java Software Developer: Signed Normal [facility] Re-Evaluation - PT (1)on Re-Evaluation - PT (1) [facility] Physical Therapy [facility] [place] [address] / REEVALUATION / MEDICARE RECERTIFICATION PHYSICAL THERAPY MR#: [id number] Acct: [id number] Name: MART HUGHES Rep #: [id number] : 1970 53 From: Godfrey Galeas DPT, OCS, CSCS Referring Dr.: Dr. Steve Trivedi MD Status:REG RCR Insurance: [employer] SELF PAY INSURANCE Re-Evaluation Intro: Dr. Steve Trivedi MD, It has been my pleasure to treat MART HUGHES over the last 19 visits for R tibial fracture s/p ORIF around 12/20. Please see the progress note below for an update on the physical therapy plan of care! Subjective Subjective: Pain level is not bad. Knee pain on R side eralier in the week was limiting function. Has to avoid stadning on bike. Doing band and stretching daily. to Doctor on 04/03 Sleep is good. Activities at home getting back to normal, has not been to cross fit and does not run. Remodelling going well, ladder Ok. Objective Objective/Function: 5/5 ankle strength B without pain, able to walk on toes and heels without pain. AROM R ankle 5 DF and 50 PF similar to L. inv and eversion are also near symmetrical . R ankle still swollen but not painful today, knee on R side hurts somewhat at times, no antalgia today, steps reciprocally without rail I using forefoot appropriately. Hesitant on lateral movement. Walking with limp mostly form wide BEBE and corrects to a nice gait pattern when cued to narrow BEBE. Overall nice progress Plan Plan Plan: Pt to doctor 04/03, Will continue 2x/week for 3-4 weeks for... 1. ensure walking with narrow BEBE adn no antalgia in gait 2. progress SLOWLY and without pain with jogging if walking is without deviaitions, lateral movement and gentle plyo and monitor tolerance up to doctor visit 04/03 Balance/Gait/Functio nal tests Balance/Special Test Scores Lower Extremity Functional Score: 62 Goals Goals Goal 1:: ST: full symmetrical AROM ankle adn knee R to L Goal Time Frame: 2-4 Weeks Goal Progress: Goal Met Goal 2:: ST: patient I in appropriate ROM adn PWB R gait with crutches and boot. Also return to gym for upper body and core workout not involving R leg Goal Time Frame: 2-4 Weeks Goal Progress: Goal Met Goal 3:: LT: walks as allowed by physician without boot or AD in community I without gait deviations Goal Time Frame: 4-6 Weeks Goal Progress: Goal Met Goal 4:: steps recirpocally without pain or deviation Goal Time Frame: 4-6 Weeks Goal Progress: Goal Met Goal 5:: Plan to return to full duty work Goal Time Frame: 12-16 Weeks Goal Progress: Progressing Goal 6:: LEFS 76 Goal Time Frame: 12-16 Weeks Goal Progress: Progressing Anticipated Interventions Anticipated Interventions Patient/Client Instruction: Educate patient on: Condition and Plan of Care For the Purpose of:: To decrease pain, To increase ROM, To improve nutrient delivery to tissue, To improve muscle performance and motor function and To improve gait and locomotor functions Therapeutic Exercise to Include: Strength training, Balance training, Postural training, Flexibilty training, Passive ROM and Active ROM For the Purpose of:: To decrease pain, To increase ROM, To improve nutrient delivery to tissue, To improve muscle performance and motor function, To increase tolerance to activity/condition/p osition and To improve gait and locomotor functions Manual Therapy Techniques to Include: Scar massage, Mobilization, Passive ROM and Soft tissue mobilization For the Purpose of:: To decrease pain, To increase ROM, To improve nutrient delivery to tissue, To increase oxygenation perfusion, To improve muscle performance and motor function and To increase tolerance to activity/condition/p osition Cryotherapy (ice pack, ice massage): Yes For the Purpose of:: To decrease swelling/inflammatio n Re-Evaluation Ending Re-evaluation ending: Please do not hesitate to contact me at [phone] by phone or if you have questions or concerns regarding this new plan of care! Sincerely, Godfrey Galeas, SHAIT, OCS, CSCS 03/23/24 1650 CC: Dr. Ramon Holland DO; Dr. Steve Trivedi MD EBG Signed For Medicare only, by signing this I certify the plan of care. Physicians Signature Date Normal [facility] Colonoscopy Reporton 024 Colonoscopy Report [facility] Medical Records Department [address] [place] [address] Colonoscopy Report MR#: [id number] Acct: [id number] Name: MART HUGHES Rep #: [id number] : 1970 53 From: Robbie Yeboah DO PCP: Dr. Ramon Holland DO Status:REG [facility] Patient Name: Mart Hughes Procedure Date: 03/22/2024 7:32 AM Date of : 1970 Age: 53 Procedure: Colonoscopy Indications: Screening for colorectal malignant neoplasm Providers: Robbie Yeboah DO Medicines: Monitored Anesthesia Care Patient Profile: This is a 53 year old male. Refer to note in patient chart for documentation of history and physical. Last Colonoscopy: none. The patient's first colonoscopy is today. Complications: No immediate complications. Procedure: Pre-Anesthesia Assessment: - Prior to the procedure, a History and Physical was performed, and patient medications and allergies were reviewed. The patient is competent. The risks and benefits of the procedure and the sedation options and risks were discussed with the patient. All questions were answered and informed consent was obtained. Patient identification and proposed procedure were verified by the physician in the pre-procedure area. Mental Status Examination: alert and oriented. Airway Examination: normal oropharyngeal airway and neck mobility. Respiratory Examination: clear to auscultation. CV Examination: normal. Prophylactic Antibiotics: The patient does not require prophylactic antibiotics. Prior Anticoagulants: The patient has taken no anticoagulant or antiplatelet agents except for NSAID medication. ASA Grade Assessment: II - A patient with mild systemic disease. After reviewing the risks and benefits, the patient was deemed in satisfactory condition to undergo the procedure. The anesthesia plan was to use monitored anesthesia care (MAC). Immediately prior to administration of medications, the patient was re-assessed for adequacy to receive sedatives. The heart rate, respiratory rate, oxygen saturations, blood pressure, adequacy of pulmonary ventilation, and response to care were monitored throughout the procedure. The physical status of the patient was re-assessed after the procedure. After I obtained informed consent, the scope was passed under direct vision. Throughout the procedure, the patient's blood pressure, pulse, and oxygen saturations were monitored continuously. The pediatric colonoscope was introduced through the anus and advanced to the cecum, identified by appendiceal orifice and ileocecal valve. The colonoscopy was performed without difficulty. The patient tolerated the procedure well. The quality of the bowel preparation was adequate. The ileocecal valve, appendiceal orifice, and rectum were photographed. Scope In: 7:39:08 AM Scope Withdrawal Time 0 hours 9 minutes 49 seconds Scope Out: 7:53:31 AM Total Procedure Duration Time 0 hours 14 minutes 23 seconds Findings: The perianal and digital rectal examinations were normal. A few small-mouthed diverticula were found in the recto-sigmoid colon and sigmoid colon. The exam was otherwise without abnormality on direct and retroflexion views. Impression: - Diverticulosis in the recto-sigmoid colon and in the sigmoid colon. - The examination was otherwise normal on direct and retroflexion views. - No specimens collected. Recommendation: - Discharge patient to home. - Resume previous diet. - Continue present medications. - Repeat colonoscopy in 10 years for screening purposes. Procedure Code(s): --- Professional --- G0121, Colorectal cancer screening; colonoscopy on individual not meeting criteria for high risk CPT copyright 2021 [employer]. All rights reserved. The codes documented in this report are preliminary and upon sweatband decorating machine operator review may be revised to meet current compliance requirements. Robbie Yeboah DO 03/22/2024 7:56:11 AM This report has been signed electronically. Number of Addenda: 0 Note Initiated On: 03/22/2024 7:32 AM 03/22/24 0756 Date Robbie Oglesby Signature: Date (if indicated) CC: Dr. Ramon Holland DO; Robbie Yeboah DO Date Dictated: 03/22/24731 Date Transcribed: Senior Java Software Developer: AZRA Signed [facility] MR/POSTOP.[facility] 03-22-2024 MR/POSTOP.[facility] Medical Records Department [address] [place] [address] Anesthesia Postop Eval I 03/22/24802 MR#: [id number] Acct: [id number] Name: MART HUGHES Rep #: [id number] : 1970 53 From: Mart Molina PCP: Dr. Ramon Holland DO Status:REG SDC Y Race: C Location: [place] [address] Anesthesia: Postop Eval I Current Vital Signs Temperature: 97.1 F Pulse Rate: 64 Blood Pressure: 104/67 Respiratory Rate: 16 Pulse Ox: 97 Oxygen Delivery Method: Room Air Assessment Airway patent: Yes Spontaneous unlabored respirations: Yes Mental status: Asleep nausea: No Vomiting: No Anesthesia Complication: No Fluid Hydration Crystalloid volume administer (ml): 50 Total IV fluid infused: 50 Progress Note Anesthesia document: Postop Eval 1 completed: Yes 03/22/24802 Date Mart Burgos Signature: Date CC: Signed Normal [facility] MR/[id number] 03-22-2024 MR/POSTOPAN2 [facility] Medical Records Department [address] [place] [address] Anesthesia Postop Eval II 03/22/24834 MR#: [id number] Acct: [id number] Name: MART HUGHES Rep #: [id number] : 1970 53 From: Jayesh Hightower MD PCP: Dr. Ramon Holland, DO Status:REG SDC Y Race: C Location: [facility] Anesthesia Postop Eval I Sum Postop Eval Completion status Anesthesia document: Postop Eval 1 completed: Yes Anesthesia Postop Eval I Summary Anesthesia Postop Eval I Summary: Anesthesia Postop Eval I: Assessment Summary Airway patent Yes 03/22/24 08:03 [email or web address] Spontaneous unlabored Yes 03/22/24 08:03 [email or web address] respirations Mental status Asleep 03/22/24 08:03 [email or web address] nausea No 03/22/24 08:03 [email or web address] Vomiting No 03/22/24 08:03 [email or web address] Anesthesia Postop Eval I: Fluid Summary Crystalloid volume administer 50 03/22/24 08:03 [email or web address] (ml) Colloids volume administered ( ml) Blood Product volume administered (ml) Total IV fluid infused 50 03/22/24 08:03 [email or web address] Anesthesia Postop Eval I: Summary Notes Anesthesia Complication No 03/22/24 08:03 [email or web address] Anesthesia Complication Comment: Post-operative progress note Anesthesia: Postop Eval II Evaluation Mental status: Awake Pain Level: 0 nausea: No Vomiting: No 03/22/24834 Date Jayesh Hightower MD Cosigner Signature: Date CC: Signed Normal [facility] MR/PATTej 03-20-2024 MR/PATRICKEY [facility] Medical Records Department [address] [place] [address] PAT - Anesthesia 03/20/24 1336 MR#: [id number] Acct: [id number] Name: MART HUGHES Rep #: [id number] : 1970 53 From: Jayesh Hightower MD PCP: Dr. 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 When Was Last Pacemaker Check QUESTION #4 FULL TEXT: You/Your Family Experience fever (hyperthermia) with Anesthesia Last Oral Intake Last Oral intake: Last Oral Intake NPO since Meds taken in AM with sips of water? Meds patient instructed to take am of surgery PONV PONV - automotive salesperson: PONV - automotive salesperson Female No 03/20/24 11:42 HX of Motion Sickness No 03/20/24 11:42 HX of N/V After Surgery No 03/20/24 11:42 Non-Smoker Yes 03/20/24 11:42 Duration of Surgery greater No 03/20/24 11:42 than 60 minutes Number of Risk Factors 1 03/20/24 11:42 PONV Score Low Risk 03/20/24 11:42 Height Weight Height Weight: Anesthesia: Height Weight Height 5 ft 11 in 01/19/24 11:28 Respiratory Assessment Respiratory Assessment - automotive salesperson: Respiratory Tract Infection Hx - automotive salesperson Hx Respiratory Tract Infection No 03/20/24 11:42 STOP Sleep Apnea STOP Sleep Apnea - automotive salesperson: STOP Sleep Apnea - automotive salesperson Hx Hypertension Yes: STOPPED BP MEDS 5 DAYS 03/20/24 11:42 AGO PER PATIENT Hx Sleep Apnea No 03/20/24 11:42 CPAP BIPAP Do you snore loudly (louder No 03/20/24 11:42 than talking or can be heard Do you often feel tired/ Yes 03/20/24 11:42 fatigued/ sleepy during daytime? Has anyone observed you stop No 03/20/24 11:42 breathing during sleep? STOP Results Positive 03/20/24 11:42 QUESTION #5 FULL TEXT : Do you snore loudly (louder than talking or can be heard through closed doors)? 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 Specify any problems Hx of Preganancy in last 3 N/A 03/20/24 11:42 Months Nurse Filling Out Transfusion DSCHRIBER 03/20/24 11:42 Questions: Date: 03/20/24 03/20/24 11:42 Time: 11:43 03/20/24 11:42 Patient unable to answer at this time (ie. confused, unrespo /Reproducti on History /Reproducti ve History - automotive salesperson: /Reproducti ve Hx- automotive salesperson Hx Now No 03/20/24 11:42 Gestational Age (in weeks): EDC: Hx Hx Para Hx Section SAB No 03/20/24 11:42 PFSH Medical History (Updated 03/20/24 @ 11:49 by Zoey Burger) Loss of hearing Wears contact lenses Cancer Alcohol use Arthritis High cholesterol Heartburn Back pain Non-smoker History of stress test History of echocardiogram History of pain when walking History of edema Hypertension Cardiology follow-up encounter History of tibial fracture Right tibial fracture Dyslipidemia Abnormal cardiovascular stress test Dyspnea on exertion History of posterior vitreous detachment Hamstring tear ED (erectile dysfunction) Headache, migraine Osteoporosis of multiple sites DDD (degenerative disc disease), cervical History of melanoma Essential hypertension Abrasion of right arm Bronchitis Hay fever Shoulder pain Skin cancer Asymptomatic hypertension Palpitations Atelectasis Hyperlipidemia Degenerative disc disease, lumbar GERD (gastroesophageal reflux disease) Home Medications ???Medication ???Instructions (more content not included)... Normal [facility] Basic Metabolic Profile (BMP )on 03-08-2024 BUN/CRE 16.7 RATIO Normal 10-20 [facility] Comment on above: Performed By: #### L 500.3400, L500.4100, L500.2500 ####[facility] [address] [place], [address] CA,Total 9.2 mg/dL Normal 8.5-10.1 [facility] Comment on above: Performed By: #### L 500.3400, L500.4100, L500.2500 ####[facility] [address] [place], [address] Chloride [Moles/Vol] 108 mmol/L High 98-107 [facility] Comment on above: Performed By: #### L 500.3400, L500.4100, L500.2500 ####[facility] [address] [place], [address] CO2 [Moles/Vol] 27.0 mmol/L Normal 21.0-32.0 [facility] Comment on above: Performed By: #### L 500.3400, L500.4100, L500.2500 ####[facility] [address] [place], [address] Creatinine [Mass/Vol] 1.08 mg/dL Normal 0.70-1.30 [facility] Comment on above: Result Comment: The validity of the calculated GFR GFRAA in patients over 70 years has not been determined. Clinical correlation is essential. Performed By: #### L 500.3400, L500.4100, L500.2500 ####[facility] [address] [place], [address] EST GFR - AA 93 mL/min Normal >60 [facility] Comment on above: Result Comment: Afri can [place] GFR Calc Performed By: #### L 500.3400, L500.4100, L500.2500 ####[facility] [address] [place], [address] GAP 6 Normal 5-15 [facility] Comment on above: Performed By: #### L 500.3400, L500.4100, L500.2500 ####[facility] [address] [place], [address] GFR/1.73 sq M.predicted among non-blacks MDRD (S/P/Bld) [Vol rate/Area] 76 mL/min/{1.73_m2} Normal >60 [facility] Comment on above: Result Comment: Non- GFR Calc Performed By: #### L 500.3400, L500.4100, L500.2500 ####[facility] [address] [place], [address] Glucose [Mass/Vol] 99 mg/dL Normal 74-106 [facility] Comment on above: Performed By: #### L 500.3400, L500.4100, L500.2500 ####[facility] [address] [place], [address] Potassium [Moles/Vol] 3.7 mmol/L Normal 3.5-5.1 [facility] Comment on above: Performed By: #### L 500.3400, L500.4100, L500.2500 ####[facility] [address] [place], [address] Sodium [Moles/Vol] 140 mmol/L Normal 136-145 [facility] Comment on above: Performed By: #### L 500.3400, L500.4100, L500.2500 ####[facility] [address] [place], [address] Urea nitrogen [Mass/Vol] 18 mg/dL Normal 7-18 [facility] Comment on above: Performed By: #### L 500.3400, L500.4100, L500.2500 ####[facility] [address] [place], [address] Lipid Profileon 03-08-2024 Cholesterol [Mass/Vol] 343 mg/dL High 200 [facility] Comment on above: Result Comment: <200 mg/dL Desirable 200-240 mg/dL Borderline >240 mg/dL High Risk Performed By: #### L 500.3400, L500.4100, L500.2500 ####[facility] [address] [place], [address] Cholesterol in HDL [Mass/Vol] 52 mg/dL Normal [facility] Comment on above: Result Comment: The drugs N-Acetylcysteine and Metamizole may falsely depress this assay. Reference Range HDL <40 mg/dL Low HDL Cholesterol HDL >or= 60 mg/dL High HDL Cholesterol Performed By: #### L 500.3400, L500.4100, L500.2500 ####[facility] [address] [place], [address] Cholesterol in LDL [Mass/Vol] 235 mg/dL High 0-130 [facility] Comment on above: Performed By: #### L 500.3400, L500.4100, L500.2500 ####[facility] [address] [place], [address] Cholesterol in VLDL [Mass/Vol] 56 mg/dL High 5-40 [facility] Comment on above: Performed By: #### L 500.3400, L500.4100, L500.2500 ####[facility] [address] [place], [address] Triglyceride [Mass/Vol] 279 mg/dL High [facility] Comment on above: Result Comment: The drugs N-Acetylcysteine and Metamizole may falsely depress this assay. Serum Triglycerides Reference Interval Normal <150 mg/dL Borderline high 150 - 199 mg/dL High 200 - 499 mg/dL Very High > or = 500 mg/dL Performed By: #### L 500.3400, L500.4100, L500.2500 ####[facility] [address] [place], [address] Liver Profileon 03-08-2024 Albumin [Mass/Vol] 3.9 g/dL Normal 3.2-5.0 [facility] Comment on above: Performed By: #### L 500.3400, L500.4100, L500.2500 ####[facility] [address] [place], [address] ALK P 124 U/L High 45-117 [facility] Comment on above: Performed By: #### L 500.3400, L500.4100, L500.2500 ####[facility] [address] [place], [address] ALT [Catalytic activity/Vol] 56 U/L Normal 16-61 [facility] Comment on above: Performed By: #### L 500.3400, L500.4100, L500.2500 ####[facility] [address] [place], [address] AST [Catalytic activity/Vol] 32 U/L Normal 15-37 [facility] Comment on above: Performed By: #### L 500.3400, L500.4100, L500.2500 ####[facility] [address] [place], [address] Bilirubin [Mass/Vol] 0.50 mg/dL Normal 0.20-1.00 [facility] Comment on above: Result Comment: For patients on eltrombopag therapy, use of Dimension Vaughn TBIL is not recommended. Performed By: #### L 500.3400, L500.4100, L500.2500 ####[facility] [address] [place], [address] Bilirubin.direct [Mass/Vol] 0.12 mg/dL Normal 0.00-0.30 [facility] Comment on above: Performed By: #### L 500.3400, L500.4100, L500.2500 ####[facility] [address] [place], [address] Globulin (S) [Mass/Vol] 3.5 g/dL Normal 2.2-4.2 [facility] Comment on above: Performed By: #### L 500.3400, L500.4100, L500.2500 ####[facility] [address] [place], [address] T PROT 7.4 g/dL Normal 6.4-8.2 [facility] Comment on above: Performed By: #### L 500.3400, L500.4100, L500.2500 ####[facility] [address] [place], [address] Orthopedic Visit Reporton Orthopedic Visit Report [facility] [address] [place] [address] [address] [place] [address] OFFICE VISIT Date of Service: 02/21/24 MR#: [id number] Acct: [id number] Name: MART HUGHES Rep #: [id number] : 1970 Provider: Dr. Steve fernandez MD Age/Sex: 53/M Location: [facility] Status: Signed Intake Vital Signs 01/19/24 11:28 Height 5 ft 11 in Weight: 195 lb BMI 27.1 Intake Visit Reasons: RIGHT LEG Accompanied by: Self Is patient in pain?: Yes Pain scale (1-10): 3 Allergies No Known Allergies Allergy (Verified 02/21/24 09:42) Medications ???Medication ???Instructions ???Recorded ???Confirmed ???Type albuterol sulfate 90 mcg/actuation 1 - 2 puff inhalation Q4H PRN PRN 11/30/20 02/21/24 Rx aerosol inhaler (Ventolin HFA) shortness of breath or wheezing #8.5 grams multivitamin 1 tab PO DAILY 03/02/21 02/21/24 History hydrochlorothiazide 25 mg tablet 25 mg PO DAILY #30 tabs 04/22/23 02/21/24 Rx cyclobenzaprine 5 mg tablet 5 mg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 Required: No Is patient in pain?: No Allergies No Known Allergies Allergy (Verified 09/08/23 13:16) Medications ???Medication ???Instructions ???Recorded ???Confirmed ???Type albuterol sulfate 90 mcg/actuation 1 - 2 puff inhalation Q4H PRN PRN 11/30/20 09/08/23 Rx aerosol inhaler (Ventolin HFA) shortness of breath or wheezing #8.5 grams multivitamin 1 tab PO DAILY 03/02/21 09/08/23 History calcium citrate malate 250 1 tab PO DAILY 03/31/23 09/08/23 History mg-vitamin D3 2.5 mcg (100 unit) tablet naproxen 500 mg tablet 500 mg PO BID PRN pain 03/31/23 09/08/23 History hydrochlorothiazide 25 mg tablet 25 mg PO DAILY #30 tabs 04/22/23 09/08/23 Rx amlodipine 10 mg tablet 10 mg PO DAILY #90 tabs 04/27/23 09/08/23 Rx PFSH Medical History (Reviewed 09/08/23 @ 13:10 by Jesika Arenas 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, 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) Dyslipidemia Abnormal cardiovascular stress test Dyspnea on exertion History of posterior vitreous detachment Hamstring tear ED (erectile dysfunction) Headache, migraine Osteoporosis of multiple sites DDD (degenerative disc disease), cervical History of melanoma Essential hypertension Abrasion of right arm Bronchitis Hay fever Shoulder pain Skin cancer Asymptomatic hypertension Palpitations Atelectasis Hyperlipidemia Degenerative disc disease, lumbar GERD (gastroesophageal reflux disease) Surgical History Hx of tonsillectomy ( 2017) Hx of vasectomy ( 1998) History of back surgery H/O rotator cuff surgery Family History Other Breast cancer COPD (chronic obstructive pulmonary disease) Cancer Heart disease Seizures Social History household members: spouse Smoking Status: Never smoker alcohol intake: current alcohol intake frequency: a few times a week Alcohol type: beer and hard liquor substance use type: does not use caffeine: Yes Type: coffee Number of servings: 2 ROS Const Const: Negative for fatigue, weakness, fever(s), headache(s), chills, frequent falls, weight gain or weight loss Eyes Eyes: Negative for blind spots, loss of peripheral vision, transient loss of vision, blurry vision, change in vision, double vision, floaters or tunnel vision ENT ENT: Negative for headache(s), dizziness, Nosebleed/epistaxis, balance problems or neck pain Cardio Chest Pain: No Palpitations: No Edema: None Muscle aches with walking: None Resp Respiratory: Negative for SOB with activity, SOB at rest or SOB orthopnea SOB lying down GI GI: Negative nausea, vomiting, heartburn, bloating, vomiting blood/hematemesis, bright, red blood in stools or black,tarry stools Musc Musc: Negative for muscle aches/ myalgia, muscle weakness, joint pain or balance problems Neuro Neuro: Negative for di (more content not included)... Normal [facility] No Panel InformationOrdered By: Ramon Holland on 08-03-2023 Prostate Specific Antigen Screen 0.90 ng/mL 0.00-4.00 [facility] Comment on above: This test was perfor med using the TPSA assay method for [employer] chemistry system. Values obtained with differentassay methods cannot be used interchangably.When changing PSA assays in the course of monitoring apatient, additional sequential testing should be carriedout to confirm baseline values. PSA,Total - Annual Screenon 08-03-2023 PSA,TOT SCREEN 0.90 ng/mL Normal 0.00-4.00 [facility] Comment on above: Result Comment: This test was performed using the TPSA assay method for the [employer] chemistry system. Values obtained with different assay methods cannot be used interchangably. When changing PSA assays in the course of monitoring a patient, additional sequential testing should be carried out to confirm baseline values. Performed By: #### L [id number] #### [facility] Laboratory [address] [place], [address] CREATININE FINGERSTICKon Creatinine [Mass/Vol] 1.0 mg/dL Normal 0.70-1.30 [facility] Comment on above: Performed By: #### L 9100.0200 ####[facility] [id number] [place], [address] EGFR WB > 60.0000 Normal >60 [facility] Comment on above: Performed By: #### L 9100.0200 ####[facility] [id number] [place], [address] Coronary Angiography CTon Coronary Angiography CT [facility] Imaging Services [address] [place] [address] 05/28/23 1706 MR#: [id number] Acct: [id number] Name: MART HUGHES Rep #: [id number] : 1970 52 From: Dameon Kent MD PCP: Dr. Ramon Holland, DO Status:PRE CLI Y Location: CT CCTA w/Cont Coronary Arteries Date of Study:: 05/28/23 Palpitations Coronary Calcium Scoring: High-resolution Computed Tomographic imaging of the chest was performed on [05/28/2023], with particular attention paid to the coronary arteries. Intravenous contrast agent was administered per protocol and images reconstructed and displayed. LEFT MAIN CORONARY ARTERY: Arises from the left coronary cusp and is noted to be normal and bifurcates into the left anterior descending artery and left circumflex artery [] LEFT ANTERIOR DESCENDING CORONARY ARTERY: Medium size vessel with a diagonal vessel with no significant atherosclerotic plaquing noted [] LEFT CIRCUMFLEX CORONARY ARTERY: Nondominant and medium size vessel with no significant atherosclerotic plaquing present [] RIGHT CORONARY ARTERY: Dominant large vessel with no significant atherosclerotic plaquing noted. [] THORACIC AORTA: Normal [] PULMONARY ARTERY: Normal [] LEFT ATRIUM/APPENDAGE: [] MITRAL VALVE: [] AORTIC VALVE: Trileaflet and normal [] LEFT VENTRICLE: Normal size [] CORONARY CALCIUM SCORE: Not obtained Conclusion: Coronary CT angiography demonstrating no significant atherosclerotic disease. [] 05/28/23 1707 Date Dameon Kent MD Cosigner Signature (if applicable): Date CC: Dr. Suleiman Mar MD; Dr. Ramon Holland DO Signed Normal [facility] Echo Completeon 05-28-2023 Echo Complete [facility] Cardiovascular Services [address] [place] [address] Echo Complete 05/28/23 1334 MR#: [id number] Acct: [id number] Name: MART HUGHES Rep #: [id number] : 1970 52 From: Suleiman Mar MD Attending Dr: Dr. Suleiman Mar MD Status: [facility] Ordering Dr: Suleiman Mar MD Date: 05/28/23 Location: [facility] Sex: M C Admitted: Reason For Study: PALPITATIONS Procedure This was a 2D Doppler, Color Flow transthoracic echocardiogram. Exam performed in department. Left Ventricle Normal LV size. Mild concentric left ventricular hypertrophy. Left ventricular systolic function is normal. The estimated ejection fraction is 65 %. Normal diastololic function. Right Ventricle Normal RV size. Normal systolic function. Atria The left and right atria are normal. Mitral Valve The mitral valve is structurally normal. No prolapse or stenosis seen. Mild (1+) mitral valve insufficiency. Tricuspid Valve Normal tricuspid valve. Trivial tricuspid valve insufficiency. Right ventricular systolic pressure estimated to be 21 mmHg. Aortic Valve Trisinus/trileaflet aortic valve. Mild focal aortic valve calcification. Pulmonic Valve Normal pulmonic valve. Mild (1+) pulmonic valve insufficiency. Great Vessels Normal aortic root. Pericardium/Pleural No pericardial effusion. MMode/2D Measurements Calculations LVIDd: 4.4 cm IVSd: 1.3 cm Ao root diam: 3.4 cm LVIDs: 2.9 cm LVPWd: 1.2 cm RVDd: 3.9 cm FS: 34.7 % _ LAV(MOD-bp): 37.6 ml LVAd ap4: 32.4 cm2 SV(MOD-sp4): 57.4 ml LAV(MOD-bp) Indexed: 18.0 ml/m2 LVLd ap4: 8.9 cm LAV(MOD-sp2): 35.6 ml EDV(MOD-sp4): 95.4 ml LAV(MOD-sp4): 41.0 ml EDV(sp4-el): 100.6 ml LVAs ap4: 17.6 cm2 LVLs ap4: 6.9 cm ESV(MOD-sp4): 38.1 ml ESV(sp4-el): 38.0 ml EF(MOD-sp4): 60.1 % EF(sp4-el): 62.2 % _ SV(sp4-el): 62.6 ml LA A4 area: 16.5 cm2 LA dimension(2D): 3.6 cm _ RA A4 area: 16.9 cm2 TAPSE: 2.0 cm Time Measurements MV dec time: 0.21 sec Doppler Measurements Calculations MV E max rani: 63.6 cm/sec Lat Peak E' Rani: 14.1 cm/sec Med Peak E' Rani: 11.0 cm/sec MV A max rani: 69.6 cm/sec E/E' lat: 4.5 E/E' med: 5.8 MV E/A: 0.91 _ Ao V2 max: 115.0 cm/sec LV V1 max: 113.0 cm/sec PA V2 max: 103.6 cm/sec Ao max P.3 mmHg LV V1 max P.1 mmHg _ TR max rani: 212.2 cm/sec TR max P.0 mmHg ECHO/Echo Complete Interpretation Summary The estimated ejection fraction is 65 %. Mild concentric left ventricular hypertrophy. Mild (1+) mitral valve insufficiency. Ordering Physician: Suleiman Mar Referring Physician: RAMON HOLLAND Performed By: Shirley Vazquez RDCS 06/03/23 1607 Date Suleiman Mar MD CC: Dr. Suleiman Mar MD; Dr. Ramon Holland DO Date Dictated: 05/28/23 1334 Date Transcribed: 06/03/23 160 Senior Java Software Developer: Signed Normal [facility] Limited Chest CT Cardiac Onl yon 05-28-[address] Cardiac Only [facility] Imaging Services [address] [place] [address] Cardiac Only MR#: [id number] Acct: [id number] Name: MART HUGHES Rep #: [id number] : 1970 M 52 From: Jose Manuel zamarripa MD PCP: Dr. Ramon Holland DO Status: [facility] Study: Limited Chest CT Cardiac Only Date of Exam: Exam# [id number] Ordering Dr: Suleiman Mar MD [id number] STUDY: CT CHEST WITH CONTRAST REASON FOR EXAM: Male, 52 years old[address] PALPIT[address] Limited CT overread only RADIATION DOSAGE (If Supplied By Facility): CTDIvol = ( 35.16 ) mGy, DLP = ( 1391.08 ) mGycm TECHNIQUE: Transaxial imaging was performed following intravenous administration of IV 60mL Isovue-370. Individualized dose optimization techniques were used for this CT. COMPARISON: Comparison is made with prior study dated November 30, 2020. FINDINGS: CHEST The lungs are normal. There is no demonstrated pleural abnormality. Normal heart and pericardium. Normal mediastinum. Normal hilar regions. Normal unenhanced pulmonary arteries. Normal aorta arch and descending thoracic aorta. Normal osseous structures. Fatty infiltration of the liver. CT/Limited Chest CT Cardiac Only IMPRESSION: Normal enhanced CT chest. Electronically Signed: Jose Manuel Gorman MD at 14:51 EST , CC: Dr. Suleiman Mar MD; Dr. Ramon Holland DO Senior Java Software Developer: Signed Normal [facility] HIV 1 and HIV-2 antibody ass ay with HIV-1 p24 antigen detectionOrdered By: Omra Huddleston on 09-30-2022 HIV 1+2 Ab+HIV1 p24 Ag IA Ql Non-Reactive Nonreactive [facility] No Panel InformationOrdered By: mOar Huddleston on 09-30-2022 Hepatitis B Surface Antigen Non-Reactive Nonreactive [facility] Hepatitis C Antibody Non-Reactive Nonreactive [facility] Comment on above: Non Reactive: < 0.8 Equivocal: >/= 0.8 to < 1.0 Reactive: >/= 1.0The CDC recommends that a reactive/equivocal HCV antibody result be followed up by the HCV Nucleic Acid Amplificationtest (425737) Serum hepatitis B virus surf solis antibody IgG detectionOrdered By: Omar Huddleston on 09-30-2022 HBV surface IgG Ql (S) Reactive [facility] Comment on above: Non Reactive: Incons istent with immunity less than <10 mIU/mL Reactive: Consistent with immunity greater than or equal to 10 mIU/mL Absolute lymphocyte countOrd ered By: Dr. Holland on 07-30-2022 Lymphocytes Auto (Unsp spec) [#/Vol] 2.28 10*3/uL 0.83-4.51 [facility] Basophil percentageOrdered B y: Dr. Holland on 07-30-2022 Basophils/100 WBC (Bld) 0.7 % 0-1 [facility] Bilirubin [Mass/Vol] 0.70 mg/dL 0.20-1.00 [facility] Comment on above: For patients on eltr ombopag therapy, use of Dimension Vaughn TBIL is not recommended. Chloride [Moles/Vol] 106 mmol/L 98-107 [facility] Cholesterol [Mass/Vol] 253 mg/dL <200 [facility] Comment on above: <200 mg/dL Desirable 200-240 mg/dL Borderline >240 mg/dL High Risk Eosinophils/100 WBC (Bld) 1.5 % 0-5 [facility] Glucose [Mass/Vol] 94 mg/dL 74-106 [facility] Neutrophils (Bld) [#/Vol] 2.6 10*3/uL 2.0-7.7 [facility] Neutrophils/100 WBC (Bld) 47.9 % 47-70 [facility] Potassium [Moles/Vol] 3.6 mmol/L 3.5-5.1 [facility] Protein [Mass/Vol] 7.9 g/dL 6.4-8.2 [facility] Sodium [Moles/Vol] 139 mmol/L 136-145 [facility] Triglyceride [Mass/Vol] 463 mg/dL <199 [facility] Comment on above: The drugs N-Acetylcy steine and Metamizole may falsely depress this assay. TRIGLYCERIDE IS GREATER THAN 400 mg/dL. LDL RESULT IS INVALID AND WILL NOT BE REPORTED.Serum Triglycerides Reference Interval Normal <150 mg/dL Borderline high 150 - 199 mg/dL High 200 - 499 mg/dL Very High > or = 500 mg/dL WBC (Bld) [#/Vol] 5.3 10*3/uL 4.4-11.0 [facility] Blood erythrocytes count (nu mber/volume)Ordered By: Dr. Holland on 07-30-2022 RBC (Bld) [#/Vol] 4.86 10*6/uL 4.6-6.2 [facility] Blood hemoglobin measurement (mass/volume)Ordered By: Dr. Holland on 07-30-2022 Hemoglobin (Bld) [Mass/Vol] 14.6 g/dL 13.0-16.5 [facility] Blood lymphocytes/100 leukoc ytesOrdered By: Dr. Holland on 07-30-2022 Lymphocytes/100 WBC (Bld) 42.7 % 19-41 [facility] Blood monocytes/100 leukocyt esOrdered By: Dr. Holland on 07-30-2022 Monocytes/100 WBC (Bld) 6.6 % 0-10 [facility] Blood platelet mean volumeOr dered By: Dr. Holland on 07-30-2022 Platelet mean volume (Bld) [Entitic vol] 11.1 fL 6.2-12.0 [facility] Determination of erythrocyte mean corpuscular volume (MCV)Ordered By: Dr. Holland on 07-30-2022 MCV (RBC) [Entitic vol] 89.1 fL 80-94 [facility] Hematocrit Auto (Bld) [Volum e fraction]Ordered By: Dr. Holland on 07-30-2022 Hematocrit (Bld) [Volume fraction] 43.3 % 40-54 [facility] Laboratory - Chemistry and C hemistry - challengeOrdered By: Dr. Holland on 07-30-2022 ALP [Catalytic activity/Vol] 63 U/L 45-117 [facility] ALT [Catalytic activity/Vol] 41 U/L 16-61 [facility] CO2 [Moles/Vol] 27.0 mmol/L 21.0-32.0 [facility] Globulin (S) [Mass/Vol] 3.6 g/dL 2.2-4.2 [facility] Urea nitrogen/Creatinine [Mass ratio] 16.3 mg/mg 10-20 [facility] Laboratory - Hematology and Cell countsOrdered By: Dr. Holland on 07-30-2022 Erythrocyte distribution width (RBC) [Entitic vol] 39.4 fL 35.1-43.9 [facility] Erythrocyte distribution width (RBC) [Ratio] 12.1 % 11.6-14.6 [facility] Immature granulocytes/100 WBC (Bld) 0.600 % 0.0-0.9 [facility] Comment on above: IG% - Immature Granu locytes (promyelocytes, myelocytes and metamyelocytes) > 1% indicates that a LEFT SHIFT is Present. MCH (RBC) [Entitic mass] 30.0 pg 27.0-32.0 [facility] Nucleated RBC/100 WBC (Bld) [Ratio] 0 % 0-5 [facility] MCHC Auto (RBC) [Mass/Vol]Or dered By: Dr. Holland on 07-30-2022 MCHC (RBC) [Mass/Vol] 33.7 g/dL 32-36 [facility] No Panel InformationOrdered By: Dr. Holland on 07-30-2022 Estimated GFR (MDRD) Amer 97 mL/min >60 [facility] Comment on above: GFR Calc Estimated GFR (MDRD) Non-Af Amer 80 mL/min >60 [facility] Comment on above: Non- GFR Calc Platelets bldOrdered By: Dr. Holland on 07-30-2022 Platelets (Bld) [#/Vol] 268 10*3/uL 150-450 [facility] Serum or plasma albumin danay urement (mass/volume)Ordered By: Dr. Holland on 07-30-2022 Albumin [Mass/Vol] 4.3 g/dL 3.2-5.0 [facility] Serum or plasma albumin/glob ulin mass ratioOrdered By: Dr. Holland on 07-30-2022 Albumin/Globulin [Mass ratio] 1.2 {ratio} 0.9-2.4 [facility] Serum or plasma calcium danay urement (mass/volume)Ordered By: Dr. Holland on 07-30-2022 Calcium [Mass/Vol] 9.9 mg/dL 8.5-10.1 [facility] Serum or plasma cholesterol in HDL measurement (mass/volume)Ordered By: Dr. Holland on 07-30-2022 Cholesterol in HDL [Mass/Vol] 46 mg/dL >40 [facility] Comment on above: The drugs N-Acetylcy steine and Metamizole may falsely depress this assay. Reference Range HDL <40 mg/dL Low HDL Cholesterol HDL >or= 60 mg/dL High HDL Cholesterol Serum or plasma cholesterol in VLDL measurement (mass/volume)Ordered By: Dr. Holland on 07-30-2022 Cholesterol in VLDL [Mass/Vol] [facility] Comment on above: Test not performed Serum or plasma creatinine m easurement (mass/volume)Ordered By: Dr. Holland on 07-30-2022 Creatinine [Mass/Vol] 1.04 mg/dL 0.70-1.30 [facility] Comment on above: The validity of the calculated GFR & GFRAA in patients over 70 years has not been determined. Clinical correlation is essential. Serum or plasma low density lipoprotein (LDL) cholesterol measurement (mass/volume)Ordered By: Dr. Holland on 07-30-2022 Cholesterol in LDL [Mass/Vol] [facility] Comment on above: Test not performed Serum or plasma urea nitroge n measurement (mass/volume)Ordered By: Dr. Holland on 07-30-2022 Urea nitrogen [Mass/Vol] 17 mg/dL 7- [facility] Thin prep Papanicolaou smear with manual screeningOrdered By: Dr. Holland on 07-30-2022 Thin prep Papanicolaou smear with manual screening 29 U/L 15 [facility] Thin prep Papanicolaou smear with manual screening 6 5-15 [facility] Clinical Summary: Britney barger 06-18-2021 [facility] OP Visit Invalid Interpretation Code [facility] Work Phone: SARS coronavirus RNA [Presen ce] in Unspecified specimen by AMARJIT with probe detectionon 04-10-2021 SARS-CoV RNA AMARJIT+probe Ql (Unsp spec) Not detected Not Detected [facility] Work Phone: Comment on above: This nucleic acid am plification test was developed and itsperformance characteristics determined by [facility]. Nucleic acid amplification tests include RT-PCR and TMA. This test has not been FDA cleared orapproved. This test has been authorized by FDA under anEmergency Use Authorization (EUA). This test is onlyauthorized for the duration of time the declaration thatcircumstances exist justifying the authorization of theemergency use of in vitro diagnostic tests for detection [id number] virus and/or diagnosis of COVID-19 infectionunder section 564(b)(1) of the Act, 21 U.S.C. 360bbb-3(b)(1), unless the authorization is terminated or revokedsooner.When diagnostic testing is negative, the possibility of afalse negative result should be considered in the contextof a patient's recent exposures and the presence ofclinical signs and symptoms consistent with COVID-19. Anindividual without symptoms of COVID-19 and who is notshedding SARS-CoV-2 virus would expect to have a negative(not detected) result in this assay. CNOVon 06-12-2019 CNOV Office Visit (UCTR) MART HUGHES ([id number]) 1970 M Date Time Provider Department 06/12/19 9:00 AM GLADIS RATLIFF (JESS) [facility] During your visit today, we recorded the following information about you: Temperature Pulse Respiration Blood pressure 100.5 degrees 96/minute 16/minute 118/74 Weight 82.6 kg Gladis Ratliff APRN.JESS 06/12/2019 9:36 AM Signed Subjective HPI Mart Obando Ellen is a 48 year old male who presents with 3 days of cough, fever, chest congestion. He has been taking mucinex at home. He states he gets bronchitis easily. Has pain in his right chest with cough. Review of Systems Constitutional: Positive for chills and fever. HENT: Positive for congestion. Negative for sore throat. Respiratory: Positive for cough and sputum production. Negative for shortness of breath. Cardiovascular: Positive for chest pain (with cough). Musculoskeletal: Positive for myalgias. BP 118/74 Pulse 96 Temp (!) 38.1 ?C (100.5 ?F) (Tympanic) Resp 16 Wt 82.6 kg (182 lb) SpO2 95% History reviewed. No pertinent past medical history. History reviewed. No pertinent surgical history. ALLERGIES Patient has no known allergies. MEDICATIONS No prescriptions on file. History reviewed. No pertinent family history. Social History Tobacco Use - Smoking status: Never Smoker - Smokeless tobacco: Never Used Substance Use Topics - Alcohol use: Not on file - Drug use: Not on file Objective Physical Exam Constitutional: He is well-developed, well-nourished, and in no distress. HENT: Right Ear: Tympanic membrane, external ear and ear canal normal. Left Ear: Tympanic membrane, external ear and ear canal normal. Nose: Nose normal. Mouth/Throat: Uvula is midline, oropharynx is clear and moist and mucous membranes are normal. No oropharyngeal exudate, posterior oropharyngeal edema or posterior oropharyngeal erythema. Neck: Neck supple. Cardiovascular: Normal rate, regular rhythm and normal heart sounds. Pulmonary/Chest: Effort normal and breath sounds normal. No respiratory distress. He has no wheezes. He has no rales. Lymphadenopathy: He has no cervical adenopathy. Neurological: He is alert. Skin: Skin is warm and dry. No rash noted. No erythema. Nursing note and vitals reviewed. ASSESSMENT/PLAN: 1. Viral bronchitis - ICD9: 466.0, ICD10: J20.8 - patient advised that antibiotics are not typically prescribed for 3 days of URI symptoms. He states my doctor always gives me an antibiotic and he wants one today because he states I rarely need to use one. - PREDNISONE 20 MG TABLET - ALBUTEROL SULFATE HFA 90 MCG/ACTUATION AEROSOL INHALER - Follow-up with your PCP in 3-5 days if symptoms have not improved or sooner if symptoms worsen - Discussed red flags and need for immediate medical evaluation if any occur. - Discussed supportive care treatment with fluids, rest and analgesia. - Discussed expected course of illness VICTORIA Ennis APRN.CNP 06/12/2019 9:32 AM Signed ASSESSMENT/PLAN: 1. Viral bronchitis - ICD9: 466.0, ICD10: J20.8 - patient advised that antibiotics are not typically prescribed for 3 days of URI symptoms. - PREDNISONE 20 MG TABLET - ALBUTEROL SULFATE HFA 90 MCG/ACTUATION AEROSOL INHALER - Follow-up with your PCP in 3-5 days if symptoms have not improved or sooner if symptoms worsen - Discussed red flags and need for immediate medical evaluation if any occur. - Discussed supportive care treatment with fluids, rest and analgesia. - Discussed expected course of illness Gladis Ratliff APRN.[facility] Diagnosis: Assessment ACUTE BRONCHITIS: You have acute bronchitis. This means the airway passages in your lungs are inflamed. Bronchitis may be caused by viruses or bacteria. Inhaling cigarette smoke will always make it worse. Exposure to irritating chemicals or second hand smoke as well as allergies can contribute to bronchitis. Repeat episodes of bronchitis may cause lifelong lung problems. Acute bronchitis is usually treated with rest, fluids, cough medicine, and possibly antibiotics or inhaled medicine to open up the small airways. It is very important that you avoid smoke and drink increased amounts of fluids. A cool air vaporizer can help thin bronchial secretions. This makes it easier to cough and clear your chest. If you are a cigarette smoker, consider using nicotine gum or skin patches to help you withdraw. Recovery from bronchitis is often slow, but you should start feeling better after 2-3 days of treatment. Please call your doctor or return here if you have any of the following symptoms: - Increased fever, chills, or chest pain. - Severe shortness of breath or bloody sputum. - Do not improve after 3 days of proper treatment. Referring Provider: SELF [[id number]] Allergies As of Date: 06/12/2019 (No Known Allergies) Date Reviewed: 06/12/2019 Reviewed by: Gladis ([facility]) Gaudencio - Fully Assessed Reason for Visit: Chest Congestion [236] Cmt: cough and chills x 3 days Primary Visit Diagnosis:Viral bronchitis [J20.8] Order(s):doxycycline hyclate (VIBRAMYCIN) 100 mg capsuleTake 1 capsule by mouth twice daily for 10 days.Disp: 20 capsuleRfl: 0 predniSONE (DELTASONE) 20 mg tabletTake 2 tablets by mouth once daily for 5 days.Disp: 10 tabletRfl: 0 albuterol HFA (VENTOLIN HFA) 90 mcg/actuation inhalerInhale 2 Puffs as instructed every 4 hours as needed.Disp: 1 InhalerRfl: 0 Prescriptions as of 06/12/2019 Sig: DOXYCYCLINE HYCLATE 100 MG CA* Take 1 capsule by mouth twice* PREDNISONE 20 MG TABLET Take 2 tablets by mouth once * ALBUTEROL SULFATE HFA 90 MCG/* Inhale 2 Puffs as instructed * Problem List As Of Date: 06/12/2019 (None) Other instructions from your clinician: ASSESSMENT/PLAN: 1. Viral bronchitis - ICD9: 466.0, ICD10: J20.8 - patient advised that antibiotics are not typically prescribed for 3 days of URI symptoms. - PREDNISONE 20 MG TABLET - ALBUTEROL SULFATE HFA 90 MCG/ACTUATION AEROSOL INHALER - Follow-up with your PCP in 3-5 days if symptoms have not improved or sooner if symptoms worsen - Discussed red flags and need for immediate medical evaluation if any occur. - Discussed supportive care treatment with fluids, rest and analgesia. - Discussed expected course of illness Gladis Ratliff APRN.[facility] [facility] Diagnosis: Assessment ACUTE BRONCHITIS: You have acute bronchitis. This means the airway passages in your lungs are inflamed. Bronchitis may be caused by viruses or bacteria. Inhaling cigarette smoke will always make it worse. Exposure to irritating chemicals or second hand smoke as well as allergies can contribute to bronchitis. Repeat episodes of bronchitis may cause lifelong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
== END | disposition home or self-care (01) ==
LOC: MTLAB 09:30
PROVIDERS: PCP Family Medicine; Referring Provider Family Medicine; Visit Provider Family Medicine
DX: Z00.00 Encounter for general adult medical examination without abnormal findings (principal); Z12.5 Encounter for screening for malignant neoplasm of prostate
CPT/HCPCS: 36415; 80053; 80061; 84153; 85025; G0103